=== PATIENT | female | born 1970 | race Caucasian/White ===

== ENCOUNTER 2016-11-11 17:57 | Emergency (ER) | payer BC ==
[~2016-11-11] VITALS: Ht 162.6 cm; Wt 49.9 kg
[~2016-11-11 17:57] MED LIST: FLV1 PO; LBR25 PO; LISI-461 PO; LORA-741 PO; NAPR1TAB9 PO; SERT50TA PO; THM100 PO
[2016-11-11 18:14] VITALS: Ht 162.6 cm; Wt 49.9 kg
[2016-11-11] MEDS ORDERED: CEPHALEXIN 500MG HOME PACK 1 EA BTL PO ONE (18:45)
[2016-11-11] MEDS ORDERED: RTL10 PO (19:00)
[2016-11-11] MEDS ORDERED: TRAZ50TA35 PO (19:00)
[2016-11-11] MEDS ORDERED: ATV1 PO (19:00)
[2016-11-11 19:04] LABS: BASO % 0.3 %; BASO ABS # 0.03 K/uL (0-0.2); COMPLETE YES; EOS % 0.7 %; HEMATOCRIT 35.4 % (37-47); IG% 0.3 %; LYMPH % 22.6 %; LYMPH ABS # 2.01 K/uL (1.2-3.4); MEAN CELL VOLUME 93.9 fL (80-100); MEAN CORPUSCULAR HEMOGLOBIN 32.6 pg (25-34); MEAN CORPUSCULAR HGB CONC 34.7 g/dl (32-36); MEAN PLATELET VOLUME 9.2 fL (7.4-10.4); MONO % 4.7 %; NEUT % 71.4 %; PLATELET COUNT 347 K/uL (130-400); RED BLOOD COUNT 3.77 M/uL (4.2-5.4)
[2016-11-11 19:17] LABS: BUN/CREATININE RATIO 12.2 (10-20); CALCIUM 8.8 mg/dl (8.5-10.1); CREATININE 0.78 mg/dl (0.60-1.20); POTASSIUM 3.7 mmol/L (3.5-5.1)
--- NOTE | 2016-11-11 19:42 | DIAGNOSTIC IMAGING REPORT ---
ULTRASOUND BILATERAL LOWER EXTREMITY VENOUS CLINICAL HISTORY: Toe discoloration. COMPARISON STUDY: No priors. TECHNIQUE: Real-time, grayscale, and color Doppler sonography of the deep veins of the right and left lower extremity was performed from the inguinal crease to the calf. Compression and augmentation were utilized. FINDINGS: There is no sonographic evidence of deep venous thrombosis identified in the right or left lower extremity. The common femoral, superficial femoral, and popliteal veins are patent and normally compressible bilaterally. The greater saphenous vein and the profunda femoris vein at the junction with the common femoral vein are clear in both legs. The visualized calf veins are patent bilaterally. IMPRESSION: There is no sonographic evidence of deep venous thrombosis identified in the right or left lower extremity. Electronically signed by: Amilcar Ash M.D. 11/11/2016 7:40 PM Dictated Date/Time: 11/11/2016 7:40 PM
[2016-11-11] MEDS ORDERED: CEPH500C PO (19:52)
[2016-11-11 20:03] VITALS: BP 141/78; PULSE 104; TEMP 37; O2SAT 98
[2016-11-11 20:10] LABS: INR 0.9 (0.9-1.1); PARTIAL THROMBOPLASTIN RATIO 0.9
[2016-11-11] MEDS ORDERED: BCPILLS PO (20:44)
--- NOTE | 2016-11-11 22:07 | EMERGENCY ROOM VISIT NOTE ---
History Report prepared by Abdirashid: Mia Magdaleno Under the Supervision of: Dr. Brain Lau M.D. First contact with patient: 18:21 Chief Complaint: OTHER COMPLAINT Stated Complaint: PURPLE TOES/BLOOD CLOTS, REFERRED FROM [facility] History of Present Illness The patient is a 46 year old female who presents to the Emergency Room with complaints of intermittent discoloration of her bilateral toes that started two weeks ago. She states that her bilateral toes get blueish-purple intermittently. She has not noticed any correlation between the discoloration and the cold, stress, or other things. The patient was seen at [facility] and told to come into the ED for further evaluation. She does not notice any pain in her feet with walking. The patient states that she picked open a spot that was on her left big toe today. She adds that she had a pedicure done two days ago, which revealed a blister with fluid under it so she felt that she needed to pick it to get the fluid out. The patient denies fevers, chest pain, shortness of breath, vomiting, abdominal pain, leg pain, and lower extremity edema. She states that her extremities are often cold and her hands occasionally get blueish-purple also. The patient is a former smoker. She stopped smoking 14 years ago and she was a heavy smoker for two years prior to quitting. The patient is on control pills and states that she has been laying in bed a lot secondary to being depressed. She admits that she has not been taking good care of herself and that she has not been eating well or exercising. Source of History: patient Onset: two weeks ago Position: toe(s) (bilateral) Quality: other (discoloration) Timing: intermittent Associated Symptoms: No SOB, No abdominal pain, No chest pain, No fevers, No vomiting Note: left big toe is intermittently painful, blister on left big toe, no leg pain, no lower extremity edema Review of Systems See HPI for pertinent positives & negatives. A total of 10 systems reviewed and were otherwise negative. Past Medical & Surgical Medical Problems: (1) Bipolar disorder (2) Hypertension Family History Patient reports no known family medical history. Social History Smoking Status: Former Smoker Alcohol Use: occasionally Marital Status: single Housing Status: unknown Occupation Status: employed Current/Historical Medications Scheduled Control Pills ( Control Pills), 1 TAB PO DAILY Cephalexin Monohydrate (Keflex), 500 MG PO QID Lisinopril (Lisinopril), 10 MG PO BID Lorazepam (Lorazepam), 0.5-1 MG PO TID Scheduled PRN Methylphenidate HCl (Methylphenidate HCl), 10 MG PO TID PRN for Focus Trazodone Hcl (Trazodone), 50 MG PO HS PRN for Sleep Allergies Coded Allergies: No Known Allergies (Unverified , 06/20/15) Physical Exam Vital Signs Date Time Temp Pulse Resp B/P Pulse Ox O2 Delivery O2 Flow Rate FiO2 11/11/16 20:03 37.0 104 18 141/78 98 11/11/16 19:40 37.0 104 18 141/78 98 Room Air 11/11/16 18:14 37.0 104 18 145/87 98 Room Air Physical Exam Constitutional: Vital signs reviewed. Eyes: Pupils are equal round reactive to light. Conjunctiva are noninjected. ENT: Pharynx is clear without erythema or exudate. Mucous membranes are moist. Neck supple without meningeal signs. Respiratory: Clear to auscultation bilaterally. Breath sounds are equal bilaterally. Cardiovascular: Regular rate and rhythm. No rubs or gallops. GI: Soft, nondistended and nontender. Bowel sounds are present. Musculoskeletal: No peripheral edema. No lower extremity tenderness. Slightly cool feet with minimal purplish discoloration scattered to the toes. Capillary refill about 2 seconds. Dorsalis pedis, and posterior tibialis pulses 2+ bilaterally. There is an evulsion of skin under the toenail of the left great toe without bleeding or discharge. No felon or paronychia. Integumentary: As above. Neurological: The patient is awake and alert. No focal deficits. Psychiatric: Anxious appearing. Medical Decision & Procedures ER Provider Diagnostic Interpretation: Radiology results as stated below per my review and the radiologist's interpretation: ULTRASOUND BILATERAL LOWER EXTREMITY VENOUS IMPRESSION: There is no sonographic evidence of deep venous thrombosis identified in the right or left lower extremity. Electronically signed by: Amilcar Ash M.D. 11/11/2016 7:40 PM Dictated Date/Time: 11/11/2016 7:40 PM Laboratory Results 11/11/16 18:50 Red Blood Count 3.77, Mean Corpuscular Volume 93.9, Mean Corpuscular Hemoglobin 32.6, Mean Corpuscular Hemoglobin Concent 34.7, Mean Platelet Volume 9.2, Neutrophils (%) (Auto) 71.4, Lymphocytes (%) (Auto) 22.6, Monocytes (%) (Auto) 4.7, Eosinophils (%) (Auto) 0.7, Basophils (%) (Auto) 0.3, Neutrophils # (Auto) 6.35, Lymphocytes # (Auto) 2.01, Monocytes # (Auto) 0.42, Eosinophils # (Auto) 0.06, Basophils # (Auto) 0.03 11/11/16 18:50 Test 11/11/16 18:50 11/11/16 19:46 White Blood Count 8.90 K/uL (4.8-10.8) Red Blood Count 3.77 M/uL (4.2-5.4) Hemoglobin 12.3 g/dL (12.0-16.0) Hematocrit 35.4 % (37-47) Mean Corpuscular Volume 93.9 fL (80-100) Mean Corpuscular Hemoglobin 32.6 pg (25-34) Mean Corpuscular Hemoglobin Concent 34.7 g/dl (32-36) Platelet Count 347 K/uL (130-400) Mean Platelet Volume 9.2 fL (7.4-10.4) Neutrophils (%) (Auto) 71.4 % Lymphocytes (%) (Auto) 22.6 % Monocytes (%) (Auto) 4.7 % Eosinophils (%) (Auto) 0.7 % Basophils (%) (Auto) 0.3 % Neutrophils # (Auto) 6.35 K/uL (1.4-6.5) Lymphocytes # (Auto) 2.01 K/uL (1.2-3.4) Monocytes # (Auto) 0.42 K/uL (0.11-0.59) Eosinophils # (Auto) 0.06 K/uL (0-0.5) Basophils # (Auto) 0.03 K/uL (0-0.2) RDW Standard Deviation 45.0 fL (36.4-46.3) RDW Coefficient of Variation 13.1 % (11.5-14.5) Immature Granulocyte % (Auto) 0.3 % Immature Granulocyte # (Auto) 0.03 K/uL (0.00-0.02) Anion Gap 11.0 mmol/L (3-11) Est Creatinine Clear Calc Drug Dose 71.7 ml/min Estimated GFR () 106.4 Estimated GFR (Non- 91.8 BUN/Creatinine Ratio 12.2 (10-20) Calcium Level 8.8 mg/dl (8.5-10.1) Prothrombin Time 10.0 SECONDS (9.0-12.0) Prothromb Time International Ratio 0.9 (0.9-1.1) Activated Partial Thromboplast Time 24.1 SECONDS (21.0-31.0) Partial Thromboplastin Ratio 0.9 Laboratory results as reviewed by me. Medications Administered Medications (Trade) Dose Ordered Sig/Franklyn Route Start Time Stop Time Status Last Admin Dose Admin Cephalexin Monohydrate (Keflex 500MG Home Pack) 1 homepack NOW ONCE PO 11/11/16 18:45 11/11/16 18:46 DC 11/11/16 19:37 1 HOMEPACK ED Course 1821: The patient was evaluated in room B2. A complete history and physical exam was performed. 1844: Ordered Cephalexin Monohydrate 1 homepack PO 1905: I reassessed the patient. She is going to ultrasound. 1947: Upon reevaluation, the patient appeared to have improvement of her symptoms. I discussed andria's findings with the patient and her father. They verbalized agreement of the treatment plan. The patient was discharged home. Medical Decision This is a 46-year-old female presents with discoloration to her fingers and toes. Differential diagnosis includes vasculitis, claudication, Raynaud's phenomenon, arterial insufficiency, venous insufficiency, DVT. I did perform a limited focused review of portions of the patient's old chart on the electronic medical record. The patient has had no recent pertinent visits to this hospital. I did evaluate the patient as noted above. The patient as intermittent discoloration of her fingers and toes for the past 2 weeks. She denies any swelling or pain to her legs other than where she was picking on her big toe today. She denies any chest discomfort or shortness of breath. She has no signs of arterial occlusion and has very strong distal pulses in the feet. She does have some risk factors for DVT including hormonal control use and she states that she has been working in bed frequently. I did order and review the patient's blood work as noted in the electronic medical record. I did order bilateral Doppler ultrasounds of lower extremities. I did review the images myself as well as the radiology report as described above. There is no evidence of DVT. I did discuss the test results with the patient. I did recommend close follow up with her regular physician for further workup of possible vasculopathy. She was discharged with a prescription for Keflex for her toe. Impression Primary Impression: Toe cyanosis Additional Impression: Avulsion of skin of foot Scribe Attestation The scribe's documentation has been prepared under my direct and personally reviewed by me in its entirety. I confirm that the note above accurately reflects all work, treatment, procedures, and medical decision making performed by me. Departure Information Dispostion Home / Self-Care Prescriptions Cephalexin Monohydrate (Keflex) 500 Mg Cap 500 MG PO QID for 5 Days, #20 CAP Prov: Brain Lau M.D. 11/11/16 Referrals Thelma Jacinto (PCP) Forms HOME CARE DOCUMENTATION FORM, IMPORTANT VISIT INFORMATION, WORK / SCHOOL INSTRUCTIONS Patient Instructions My [facility] Additional Instructions You have been examined and treated today on an emergency basis only. This is not a substitute for, or an effort to provide, complete comprehensive medical care. It is impossible to recognize and treat all injuries or illnesses in a single emergency department visit. It is therefore important that you follow up closely with your physician. Call as soon as possible for an appointment. Return for worsening symptoms or if you develop fever, vomiting, chest pain, shortness of breath, numbness or weakness in your feet or any other concerning symptoms. Problem Qualifiers Additional Impression: Avulsion of skin of foot Encounter type: initial encounter Laterality: left Qualified Codes: S91.302A - Unspecified open wound, left foot, initial encounter
[2016-12-28] MEDS ORDERED: MULT-589 PO (13:31)
[2016-12-28] MEDS ORDERED: LBR10 PO (13:31)
[2016-12-28] MEDS ORDERED: THM100 PO (13:31)
[2016-12-28] MEDS ORDERED: ATV1 PO (13:31)
[2016-12-28] MEDS ORDERED: FLV1 PO (13:31)
[2016-12-28] MEDS ORDERED: LSN25 PO (13:31)
== END 2016-11-11 20:04 | disposition home or self-care (01) ==
LOC: EDBD → C.EDB 17:59
DX: R23.0 Cyanosis (principal); S91.302A Unspecified open wound, left foot, initial encounter; X58.XXXA Exposure to other specified factors, initial encounter; I10 Essential (primary) hypertension; F31.9 Bipolar disorder, unspecified; Z79.899 Other long term (current) drug therapy; Z87.891 Personal history of nicotine dependence

== ENCOUNTER 2016-12-23 21:08 | Inpatient (IN) | payer BC ==
[~2016-12-23] VITALS: Ht 162.6 cm; Wt 52.5 kg
[~2016-12-23 21:08] MED LIST changes: +ATV1 PO; +BCPILLS PO; -FLV1 PO; -LBR25 PO; -LORA-741 PO; -NAPR1TAB9 PO; +RTL10 PO; -SERT50TA PO; -THM100 PO; +TRAZ50TA35 PO
[2016-12-23] MEDS ORDERED: SODIUM CHLORIDE 0.9% 1000ML 1,000 ML IV STA (21:32)
[2016-12-23] MEDS ORDERED: EFF/375 PO (21:56)
[2016-12-23] MEDS ORDERED: SERT-234 PO (21:56)
[2016-12-23] MEDS ORDERED: CEPH500C2 PO (21:56)
[2016-12-23] MEDS ORDERED: METH20TA66 PO (21:56)
[2016-12-23] MEDS ORDERED: CARB0.5D28 OP (21:56)
[2016-12-23 22:07] LABS: URINE APPEARANCE CLEAR (CLEAR); URINE BILIRUBIN NEG (NEG); URINE COLOR YELLOW; URINE NITRITE NEG (NEG); URINE PH 5.5 (4.5-7.5); URINE SPECIFIC GRAVITY 1.006 (1.000-1.030); UROBILINOGEN NEG (NEG)
[2016-12-23 22:08] LABS: MANUAL MICROSCOPIC REQUIRED? NO; REVIEW REQ? NO
[2016-12-23 22:25] LABS: BENZODIAZEPINE, URINE NEG (NEG); COCAINE,URINE NEG (NEG); PHENCYCLIDINE, URINE NEG (NEG)
[2016-12-23 22:46] LABS: BASO % 0.5 %; BASO ABS # 0.05 K/uL (0-0.2); COMPLETE YES; EOS % 0.4 %; HEMATOCRIT 36.9 % (37-47); IG% 0.2 %; LYMPH % 12.7 %; LYMPH ABS # 1.23 K/uL (1.2-3.4); MEAN CELL VOLUME 98.9 fL (80-100); MEAN CORPUSCULAR HGB CONC 33.3 g/dl (32-36); MEAN PLATELET VOLUME 9.1 fL (7.4-10.4); MONO % 3.5 %; NEUT % 82.7 %; PLATELET COUNT 305 K/uL (130-400); RED BLOOD COUNT 3.73 M/uL (4.2-5.4); WHITE BLOOD COUNT 9.71 K/uL (4.8-10.8)
[2016-12-23 22:55] LABS: PARTIAL THROMBOPLASTIN RATIO 0.9; PROTHROMBIN TIME (PATIENT) 10.2 SECONDS (9.0-12.0)
--- NOTE | 2016-12-23 22:59 | DIAGNOSTIC IMAGING REPORT ---
CHEST ONE VIEW PORTABLE HISTORY: Altered mental status. COMPARISON: Chest 06/20/2015. FINDINGS: Right lower lobe nodular density likely represents a nipple shadow. Rotated study. The lungs appear clear. No pleural effusions. No pneumothorax. The heart is normal in size. IMPRESSION: No acute process. Electronically signed by: Дмитрий Scherer M.D. 12/23/2016 10:57 PM Dictated Date/Time: 12/23/2016 10:56 PM
[2016-12-23 23:09] LABS: ALT/SGPT 17 U/L (12-78); AST/SGOT 17 U/L (15-37); BLOOD UREA NITROGEN 8 mg/dl (7-18); BUN/CREATININE RATIO 9.8 (10-20); CALCIUM 7.3 mg/dl (8.5-10.1); CARBON DIOXIDE 23 mmol/L (21-32); CHLORIDE 108 mmol/L (98-107); CREATININE 0.78 mg/dl (0.60-1.20); GLUCOSE 85 mg/dl (70-99); POTASSIUM 3.4 mmol/L (3.5-5.1); SODIUM 143 mmol/L (136-145)
[2016-12-23 23:12] LABS: ALKALINE PHOSPHATASE 52 U/L (45-117)
[2016-12-23 23:18] LABS: ACETAMINOPHEN 3 ug/ml (10-30)
[2016-12-24] MEDS ORDERED: THIAMINE HCL 100 MG/ML 2 ML VIAL IV STA (00:18)
[2016-12-24] MEDS ORDERED: THIAMINE HCL INJ 100 MG in SYRINGE 9 ML IV STA (00:26)
[2016-12-24] MEDS ORDERED: POTASSIUM CHLORIDE 10 MEQ TABCR PO STA (00:56)
[2016-12-24] MEDS ORDERED: HALOPERIDOL LACTATE 5 MG/ML 1 ML VIAL IM PRN (01:00)
[2016-12-24 01:14] LABS: PREG INTERNAL NEGATIVE QC NEG CLEAR BACKGROUND; PREG INTERNAL POSITIVE QC POS CONTROL LINE
[2016-12-24] MEDS ORDERED: IV FLUIDS COMPLETED PRN (01:30)
[2016-12-24] MEDS ORDERED: GABAPENTIN 600 MG TAB PO SCH (02:00)
[2016-12-24] MEDS: LACTATED RINGER'S 1000ML 1,000 ML IV SCH ×2 (02:03→13:30)
--- NOTE | 2016-12-24 02:05 | EMERGENCY ROOM VISIT NOTE ---
History Report prepared by Abdirashid: Timothy Davis Under the Supervision of: Dr. Jeff Pruett D.O. First contact with patient: 21:24 Chief Complaint: OVERDOSE (INTENTIONAL) Stated Complaint: OVERDOSE History of Present Illness This HPI is limited due to the intoxication of the patient. The patient is a 46 year old female who presents to the Emergency Room following an intentional overdose. Per the emergency medical personnel the patient was found in her basement laying on the floor with a bottle of alcohol and multiple bottles of medication including Ativan and Benadryl. The patient admits to taking Ativan. She was last seen behaving normally at 1200 by her family. History limited to intoxication. Source of History: EMS Onset: Uknown Position: other (Ingestion) Quality: other (Intentional overdose ) Review of Systems See HPI for pertinent positives & negatives. A total of 10 systems reviewed and were otherwise negative. Past Medical & Surgical Medical Problems: (1) Bipolar disorder (2) Drug overdose, intentional (3) Hypertension Family History Patient reports no known family medical history. Social History Smoking Status: Unknown if Ever Smoked Alcohol Use: occasionally Marital Status: single Housing Status: unknown Occupation Status: employed Current/Historical Medications Scheduled Carboxymethylcellulose Sodium (Refresh Tears), Unknown Dose OP DIRECTED Cephalexin Monohydrate (Keflex), 500 MG PO QID Lisinopril (Lisinopril), 10 MG PO BID Lorazepam (Lorazepam), 0.5-1 MG PO TID Methylphenidate HCl (Methylphenidate HCl), 20 MG PO BID Sertraline (Zoloft), 200 MG PO HS Venlafaxine Hcl (Effexor), 75 MG PO QDB Scheduled PRN Trazodone Hcl (Trazodone), 50 MG PO HS PRN for Sleep Allergies Coded Allergies: No Known Allergies (Unverified , 12/23/16) Physical Exam Vital Signs Date Time Temp Pulse Resp B/P Pulse Ox O2 Delivery O2 Flow Rate FiO2 12/24/16 00:41 101 16 98 12/24/16 00:36 96 16 99 12/24/16 00:30 117/72 12/24/16 00:06 92 14 100 12/24/16 00:01 129/100 12/23/16 23:43 98 15 100 12/23/16 23:30 107/68 4/23/17 23:13 90 16 100 12/23/16 23:00 127/82 12/23/16 22:44 111/73 12/23/16 22:43 86 15 97 12/23/16 22:38 88 16 111/73 99 12/23/16 22:08 86 17 100 12/23/16 21:38 85 17 100 12/23/16 21:36 Room Air 12/23/16 21:28 88 12/23/16 21:20 133/85 12/23/16 21:12 36.4 90 16 133/85 100 Room Air Physical Exam GENERAL: Laying on right side, disheveled, responding to voice. EYE EXAM: normal conjunctiva, PERRL and EOM's grossly intact. Pupils are 5 mm and reactive to light. OROPHARYNX: no exudate, no erythema, lips, buccal mucosa, and tongue normal and mucous membranes are moist NECK: There are scratch soliz along the left side of the neck. Supple, no nuchal rigidity, no adenopathy, non-tender LUNGS: Clear to auscultation. Normal chest wall mechanics HEART: no murmurs, S1 normal and S2 normal ABDOMEN: abdomen soft, non-tender, normo-active bowel sounds, no masses, no rebound or guarding. BACK: Back is symmetrical on inspection and there is no deformity, no midline tenderness, no CVA tenderness. SKIN: no rashes and no bruising UPPER EXTREMITIES: upper extremities are grossly normal. LOWER EXTREMITIES: No pitting edema. NEURO EXAM: Not following commands. Able to intermittently answer questions in single word. Medical Decision & Procedures ER Provider Diagnostic Interpretation: Radiology results as stated below per my review and the radiologist's interpretation: CHEST ONE VIEW PORTABLE HISTORY: Altered mental status. COMPARISON: Chest 06/20/2015. FINDINGS: Right lower lobe nodular density likely represents a nipple shadow. Rotated study. The lungs appear clear. No pleural effusions. No pneumothorax. The heart is normal in size. IMPRESSION: No acute process. Electronically signed by: Дмитрий Scherer M.D. 12/23/2016 10:57 PM Dictated Date/Time: 12/23/2016 10:56 PM Laboratory Results 12/23/16 22:28 Red Blood Count 3.73, Mean Corpuscular Volume 98.9, Mean Corpuscular Hemoglobin 33.0, Mean Corpuscular Hemoglobin Concent 33.3, Mean Platelet Volume 9.1, Neutrophils (%) (Auto) 82.7, Lymphocytes (%) (Auto) 12.7, Monocytes (%) (Auto) 3.5, Eosinophils (%) (Auto) 0.4, Basophils (%) (Auto) 0.5, Neutrophils # (Auto) 8.03, Lymphocytes # (Auto) 1.23, Monocytes # (Auto) 0.34, Eosinophils # (Auto) 0.04, Basophils # (Auto) 0.05 12/23/16 22:28 Test 12/23/16 21:10 12/23/16 21:58 12/23/16 22:28 Urine Color YELLOW Urine Appearance CLEAR (CLEAR) Urine pH 5.5 (4.5-7.5) Urine Specific [place] 1.006 (1.000-1.030) Urine Protein NEG (NEG) Urine Glucose (UA) NEG (NEG) Urine Ketones NEG (NEG) Urine Occult Blood NEG (NEG) Urine Nitrite NEG (NEG) Urine Bilirubin NEG (NEG) Urine Urobilinogen NEG (NEG) Urine Leukocyte Esterase NEG (NEG) Urine Osmolality 221 mOms/kg (500-800) Urine Opiates Screen NEG (NEG) Urine Methadone, Qualitative NEG (NEG) Urine Barbiturates NEG (NEG) Urine Phencyclidine (PCP) Level NEG (NEG) Ur Amphetamine/Methamphetamine NEG (NEG) MDMA (Ecstasy) Screen NEG (NEG) Urine Benzodiazepines Screen NEG (NEG) Urine Cocaine Metabolite NEG (NEG) Urine Marijuana (THC) NEG (NEG) Urine Test NEG (NEG) White Blood Count 9.71 K/uL (4.8-10.8) Red Blood Count 3.73 M/uL (4.2-5.4) Hemoglobin 12.3 g/dL (12.0-16.0) Hematocrit 36.9 % (37-47) Mean Corpuscular Volume 98.9 fL (80-100) Mean Corpuscular Hemoglobin 33.0 pg (25-34) Mean Corpuscular Hemoglobin Concent 33.3 g/dl (32-36) Platelet Count 305 K/uL (130-400) Mean Platelet Volume 9.1 fL (7.4-10.4) Neutrophils (%) (Auto) 82.7 % Lymphocytes (%) (Auto) 12.7 % Monocytes (%) (Auto) 3.5 % Eosinophils (%) (Auto) 0.4 % Basophils (%) (Auto) 0.5 % Neutrophils # (Auto) 8.03 K/uL (1.4-6.5) Lymphocytes # (Auto) 1.23 K/uL (1.2-3.4) Monocytes # (Auto) 0.34 K/uL (0.11-0.59) Eosinophils # (Auto) 0.04 K/uL (0-0.5) Basophils # (Auto) 0.05 K/uL (0-0.2) RDW Standard Deviation 47.3 fL (36.4-46.3) RDW Coefficient of Variation 13.1 % (11.5-14.5) Immature Granulocyte % (Auto) 0.2 % Immature Granulocyte # (Auto) 0.02 K/uL (0.00-0.02) Prothrombin Time 10.2 SECONDS (9.0-12.0) Prothromb Time International Ratio 1.0 (0.9-1.1) Activated Partial Thromboplast Time 23.6 SECONDS (21.0-31.0) Partial Thromboplastin Ratio 0.9 Anion Gap 12.0 mmol/L (3-11) Estimated GFR () 106.4 Estimated GFR (Non- 91.8 BUN/Creatinine Ratio 9.8 (10-20) Osmolality 360 mOsm/kg (280-300) Calcium Level 7.3 mg/dl (8.5-10.1) Magnesium Level 2.0 mg/dl (1.8-2.4) Total Bilirubin < 0.1 mg/dl (0.2-1) Direct Bilirubin < 0.1 mg/dl (0-0.2) Aspartate Amino Transf (AST/SGOT) 17 U/L (15-37) Alanine Aminotransferase (ALT/SGPT) 17 U/L (12-78) Alkaline Phosphatase 52 U/L (45-117) Total Creatine Kinase 69 U/L (26-192) Total Protein 6.3 gm/dl (6.4-8.2) Albumin 3.2 gm/dl (3.4-5.0) Lipase 164 U/L (73-393) Salicylates Level < 1.7 mg/dl (2.8-20) Acetaminophen Level 3 ug/ml (10-30) Ethyl Alcohol mg/dL 319.0 mg/dl (0-3) Laboratory results per my review. Medications Administered Medications (Trade) Dose Ordered Sig/Franklyn Route Start Time Stop Time Status Last Admin Dose Admin Sodium Chloride 1,000 ml @ 999 mls/hr Q1H1M STAT IV 12/23/16 21:32 12/23/16 22:32 DC 12/23/16 21:32 999 MLS/HR Thiamine HCl/ Syringe (Vitamin B-1 Inj/ Syringe) 10 ml @ 2 mls/min NOW STAT IV 12/24/16 00:26 12/24/16 00:30 DC 12/24/16 00:38 2 MLS/MIN ECG Indication: toxicologic Rate (beats per minute): 95 Rhythm: sinus tachycardia Findings: no ectopy, other (Normal [place], Normal intervals) ED Course ED COURSE: Vital signs were reviewed and showed tachycardiac vitals The patients medical record was reviewed The above diagnostic studies were performed and reviewed. ED treatments and interventions as stated above. 6: The patient was evaluated in room A3. A complete history and physical examination was performed. 2132: Ordered Sodium Chloride 1000 mL @ 999 mL/hr IV. 2242: I discussed the case with the patient's mother at this time. 2357: I discussed the case with Dr. Gavino Holt [facility] Hospitalist at this time , He will evaluate the patient for further treatment. 0000: Ordered Lactated Ringer's 1000 mL @ 75 mL/hr IV. 0026: Ordered Thiamine HCl 100 mg 10 mL @ 2mL/min IV. 0030: Upon reevaluation, the patient is resting in bed.I discussed my findings with the patient and she understands and agrees with the treatment plan. Based on the patients age, coexisting illnesses, exam and lab findings the decision to treat as an inpatient was made. The patient remained stable while under my care. The patient will be evaluated for further management. Medical Decision Differential diagnosis: Etiologies such as toxicologic, infection, hypoglycemia, electrolyte abnormalities, cardiac sources, intracerebral event, neurologic, as well as others were entertained. Patient is a 46-year-old female that presents the ER following writing a suicide note, taking large amounts of alcohol and possible multidrug overdose. On exam patient awakens to voice but mumbles and is unable to give a complete history. Parents are uncertain of what she took. Patient does smell of alcohol. CBC was unremarkable. BMP was unremarkable along with LFTs, bilirubin and lipase. No significant large anion gap. Serum osmolality was elevated with a elevated alcohol. This was negative. Salicylates and acetaminophen were negative. PT and INR were unremarkable. 302 was petitioned by family. Patient's family was updated. She was in its internal medicine for suicide attempt and multiple drug overdose. EKG was unremarkable with normal intervals. Chest x-ray was unremarkable as well. Consults Time Called: [phone] Consulting Physician: Dr. Gavino Agarwal Hospitalist Returned Call: [phone] I discussed the case with Dr. [facility]avino [facility] at this time, He will evaluate the patient for further treatment. Impression Primary Impression: Acute alcohol intoxication Additional Impressions: Drug overdose, intentional Suicide attempt Scribe Attestation The scribe's documentation has been prepared under my direction and personally reviewed by me in its entirety. I confirm that the note above accurately reflects all work, treatment, procedures, and medical decision making performed by me. Departure Information Dispostion Being Evaluated By Hospitalist Referrals No Doctor, Assigned (PCP) Patient Instructions My [facility] Problem Qualifiers Primary Impression: Acute alcohol intoxication Complication of substance-induced condition: with unspecified complication Qualified Codes: F10.129 - Alcohol abuse with intoxication, unspecified Additional Impressions: Drug overdose, intentional Encounter type: initial encounter Qualified Codes: T50.902A - Poisoning by unspecified drugs, medicaments and biological substances, intentional self-harm , initial encounter
[2016-12-24 02:09] VITALS: BP 141/92; PULSE 93; TEMP 36.8; O2SAT 97; Ht 162.6 cm; Wt 52.5 kg
--- NOTE | 2016-12-24 04:36 | HISTORY & PHYSICAL EXAMINATION ---
DATE OF ADMISSION: 12/24/2016 PRIMARY CARE DOCTOR: Dr. Lake. Patient however requesting that records of current hospital confinement not be forwarded to PCP for now. Hx obtained from px and records. CHIEF COMPLAINT: "I should be ." HISTORY OF PRESENT ILLNESS: Medical history significant for mood DSO, anxiety, past tobacco abuse, hypertension, attention deficit as per records. Recent confinement in June 2015 for alcohol intoxication and withdrawal. The last few days the patient undergoing a lot of stress. Last night the patient found unresponsive with a suicide note at home. Patient noted to be lethargic. Patient found with empty pill bottles around her, lisinopril, Ativan and diphenhydramine. As per the patient's parents, patient buys medications from the streets; frequently talks about suicide. MEDICAL HISTORY: As above. SURGERIES: None. HOME MEDICATIONS: Include Refresh, Keflex, lisinopril, lorazepam, methylphenidate, Zoloft, trazodone, Effexor. ALLERGIES: No known drug allergies. FAMILY HISTORY: Hypertension. PERSONAL AND SOCIAL HISTORY: Past tobacco abuse, alcohol abuse as per records although patient denies this. 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 REVIEW OF SYSTEMS: As per HPI, all other ROS negative. PHYSICAL EXAMINATION: VITAL SIGNS: Blood pressure was noted to be 120/80, pulse rate 91, RR 16, temperature 36.4, sats 100 on room air. GENERAL: Noted to be crying, anxious, no respiratory distress. SKIN: Normal color. HEENT: [place] palpebral conjunctivae. Dry mucosa. NECK: No JVD. supple, abrasion on the left neck. CHEST: Clear to auscultation. HEART: Regular rate and rhythm. ABDOMEN: Soft. EXTREMITIES: No edema, no tenderness. NEUROLOGIC: No gross focality except for dilated pupils LABS: Hemoglobin 12.3, platelets 205. Sodium 142 K 3.3 CO2 20, BUN 18.7, glucose was noted to be 80. serum osmolarity 360 Alcohol level was 319. Urine tox was negative. ASSESSMENT: 1. Polysubstance overdose secondary to suicidality (benzo, alcohol, JOSE inhibitor, and antihistamine rx) Patient currently more awake. 2. Mood disorder, suboptimal. 3. Hypertension. BP stable. 4. alcohol abuse 5. past tobacco abuse. 6. hypokalemia PLAN: Observation [facility] Suicide precautions Psych consult RE suicidality Hold home neuro-psychotropics for now until patient seen by Psych replace potassium. DT precautions ancillary services manager RE discharge planning. DVT prophylaxis, SCDs. Full code MTDD
[2016-12-24] MEDS: GABAPENTIN 600 MG TAB PO SCH ×3 (06:29→19:47)
[2016-12-24 06:47] LABS: BUN/CREATININE RATIO 6.4 (10-20); CALCIUM 7.8 mg/dl (8.5-10.1); CREATININE 0.75 mg/dl (0.60-1.20); POTASSIUM 3.8 mmol/L (3.5-5.1)
[2016-12-24 07:15] VITALS: BP 107/69; PULSE 95; TEMP 36.9; O2SAT 98
[2016-12-24] MEDS: LISINOPRIL 2.5 MG TAB PO SCH (08:00)
[2016-12-24] MEDS: MULTIVITAMIN TAB PO SCH (08:00)
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
[2016-12-24] MEDS: HALOPERIDOL 1 MG TAB PO PRN ×2 (11:14→16:27)
--- NOTE | 2016-12-24 12:16 | Progress Note ---
Internal Med Progress Note Date of Service: Dec 24, 2016. Provider Documentation: SUBJECTIVE: Patient is crying that she doesnt want to stay here or go to psych facility. Mother by bedside, Sitter by bedside. Suicidal ideations + OBJECTIVE: Vital Signs-as noted below Exam: Not cooperative General-AAOX3, crying Lungs-AEBE, no wheezing Heart-S1, S2 normal, no murmurs Extremities-No edema Lab data as noted below. ASSESSMENT & PLAN: ASSESSMENT AND PLAN : POLYSUBSTANCE OVERDOSE-SUICIDE ATTEMPT : (Benzo/alcohol/ACEI/ANTIHISTAMINE RX) -Vital stable. Continues to cry/depressed -Continue with 1:1 observation -Psych on board- Needs inpatient psych rx once medically cleared. To restart medications per psych once transferred to facility. Appreciate inputs ALCOHOL ABUSE -Last drink yesterday. -W/F Withdrawal over next 48 hours as levels > 300 on presentation -Gabapentin alcohol withdrawal protocol. Will try to avoid BZDs as much as possible -Per psych, to avoid Benzodiazepines unless needed for withdrawal. Patient has been known to abuse medications per mom. Refused to sign medical release for her outpatient providers because of the fear that they will take away her medications from her. HYPOKALEMIA -Resolved HTN Stable DVT PROPHYLAXIS SCDs; low risk DISPOSITION Observation . Needs to be transferred to inpatient psych unit , [facility] once medically cleared Mom by bedside Vital Signs: Date Time Temp Pulse Resp B/P Pulse Ox O2 Delivery O2 Flow Rate FiO2 12/24/16 08:00 Room Air 12/24/16 07:15 36.9 95 20 107/69 98 Room Air 12/24/16 02:09 36.8 93 22 141/92 97 Room Air 12/24/16 01:11 88 15 100 12/24/16 01:04 91 12/24/16 01:00 121/83 12/24/16 00:41 101 16 98 12/24/16 00:36 96 16 99 12/24/16 00:30 117/72 12/24/16 00:06 92 14 100 12/24/16 00:01 129/100 12/23/16 23:43 98 15 100 12/23/16 23:30 107/68 12/23/16 23:13 90 16 100 12/23/16 23:00 127/82 12/23/16 22:44 111/73 12/23/16 22:43 86 15 97 12/23/16 22:38 88 16 111/73 99 12/23/16 22:08 86 17 100 12/23/16 21:38 85 17 100 12/23/16 21:36 Room Air 12/23/16 21:28 88 12/23/16 21:20 133/85 12/23/16 21:12 36.4 90 16 133/85 100 Room Air Lab Results: Results Past 24 Hours Test 12/23/16 21:10 12/23/16 21:58 12/23/16 22:28 12/24/16 05:14 Range/Units Urine Color YELLOW Urine Appearance CLEAR CLEAR Urine pH 5.5 4.5-7.5 Urine Specific [place] 1.006 1.000-1.030 Urine Protein NEG NEG Urine Glucose (UA) NEG NEG Urine Ketones NEG NEG Urine Occult Blood NEG NEG Urine Nitrite NEG NEG Urine Bilirubin NEG NEG Urine Urobilinogen NEG NEG Urine Leukocyte Esterase NEG NEG Urine Osmolality 221 500-800 mOms/kg Urine Opiates Screen NEG NEG Urine Methadone, Qualitative NEG NEG Urine Barbiturates NEG NEG Urine Phencyclidine (PCP) Level NEG NEG Ur Amphetamine/Methamphetamine NEG NEG MDMA (Ecstasy) Screen NEG NEG Urine Benzodiazepines Screen NEG NEG Urine Cocaine Metabolite NEG NEG Urine Marijuana (THC) NEG NEG Urine Test NEG NEG White Blood Count 9.71 4.8-10.8 K/uL Red Blood Count 3.73 4.2-5.4 M/uL Hemoglobin 12.3 12.0-16.0 g/dL Hematocrit 36.9 37-47 % Mean Corpuscular Volume 98.9 80-100 fL Mean Corpuscular Hemoglobin 33.0 25-34 pg Mean Corpuscular Hemoglobin Concent 33.3 32-36 g/dl Platelet Count 305 130-400 K/uL Mean Platelet Volume 9.1 7.4-10.4 fL Neutrophils (%) (Auto) 82.7 % Lymphocytes (%) (Auto) 12.7 % Monocytes (%) (Auto) 3.5 % Eosinophils (%) (Auto) 0.4 % Basophils (%) (Auto) 0.5 % Neutrophils # (Auto) 8.03 1.4-6.5 K/uL Lymphocytes # (Auto) 1.23 1.2-3.4 K/uL Monocytes # (Auto) 0.34 0.11-0.59 K/uL Eosinophils # (Auto) 0.04 0-0.5 K/uL Basophils # (Auto) 0.05 0-0.2 K/uL RDW Standard Deviation 47.3 36.4-46.3 fL RDW Coefficient of Variation 13.1 11.5-14.5 % Immature Granulocyte % (Auto) 0.2 % Immature Granulocyte # (Auto) 0.02 0.00-0.02 K/uL Prothrombin Time 10.2 9.0-12.0 SECONDS Prothromb Time International Ratio 1.0 0.9-1.1 Activated Partial Thromboplast Time 23.6 21.0-31.0 SECONDS Partial Thromboplastin Ratio 0.9 Sodium Level 143 144 136-145 mmol/L Potassium Level 3.4 3.8 3.5-5.1 mmol/L Chloride Level 108 111 98-107 mmol/L Carbon Dioxide Level 23 22 21-32 mmol/L Anion Gap 12.0 11.0 3-11 mmol/L Blood Urea Nitrogen 8 5 7-18 mg/dl Creatinine 0.78 0.75 0.60-1.20 mg/dl Estimated GFR () 106.4 111.6 Estimated GFR (Non- 91.8 96.3 BUN/Creatinine Ratio 9.8 6.4 10-20 Random Glucose 85 74 70-99 mg/dl Osmolality 360 280-300 mOsm/kg Calcium Level 7.3 7.8 8.5-10.1 mg/dl Magnesium Level 2.0 1.8-2.4 mg/dl Total Bilirubin < 0.1 0.2-1 mg/dl Direct Bilirubin < 0.1 0-0.2 mg/dl Aspartate Amino Transf (AST/SGOT) 17 15-37 U/L Alanine Aminotransferase (ALT/SGPT) 17 12-78 U/L Alkaline Phosphatase 52 45-117 U/L Total Creatine Kinase 69 26-192 U/L Total Protein 6.3 6.4-8.2 gm/dl Albumin 3.2 3.4-5.0 gm/dl Lipase 164 73-393 U/L Salicylates Level < 1.7 2.8-20 mg/dl Acetaminophen Level 3 10-30 ug/ml Ethyl Alcohol mg/dL 319.0 0-3 mg/dl Est Creatinine Clear Calc Drug Dose 79.9 ml/min
[2016-12-24 14:33] VITALS: BP 147/91; PULSE 92; TEMP 36.9; O2SAT 99
[2016-12-24] MEDS: ACETAMINOPHEN 325 MG TAB PO PRN (19:46)
[2016-12-24 22:54] VITALS: BP 145/88; PULSE 88; TEMP 36.9; O2SAT 94
[2016-12-25] VITALS (9 sets, daily range): BP systolic 108–150; BP diastolic 67–90; PULSE 80–105; TEMP 36.7–36.9; O2SAT 97–99
[2016-12-25] MEDS: LACTATED RINGER'S 1000ML 1,000 ML IV SCH (02:27)
[2016-12-25] MEDS: HALOPERIDOL 1 MG TAB PO PRN ×2 (03:35→09:25)
[2016-12-25] MEDS: GABAPENTIN 600 MG TAB PO SCH ×2 (03:35→11:37)
[2016-12-25] MEDS: THIAMINE HCL 100 MG TAB PO SCH (09:25)
[2016-12-25] MEDS: MULTIVITAMIN TAB PO SCH (09:25)
[2016-12-25] MEDS: LISINOPRIL 2.5 MG TAB PO SCH (09:25)
[2016-12-25] MEDS: SODIUM CHLORIDE 0.9% 1000ML 1,000 ML IV SCH ×2 (11:38→19:57)
[2016-12-25 11:46] LABS: BUN/CREATININE RATIO 10.7 (10-20); CALCIUM 8.5 mg/dl (8.5-10.1); CREATININE 0.64 mg/dl (0.60-1.20); MAGNESIUM 2.3 mg/dl (1.8-2.4); POTASSIUM 4.1 mmol/L (3.5-5.1)
[2016-12-25] MEDS ORDERED: LORAZEPAM 2 MG/ML 1 ML VIAL IV STA (12:10)
[2016-12-25] MEDS ORDERED: CHLORDIAZEPOXIDE 25 MG CAP PO SCH (12:15)
[2016-12-25] MEDS: ONDANSETRON INJ 2 MG/ML 2 ML VIAL IV. PRN ×2 (12:20→12:36)
[2016-12-25] MEDS: PANTOprazole INJ 40 MG in SYRINGE 0 ML IV ONE ×2 (12:20→12:36)
[2016-12-25] MEDS ORDERED: LORAZEPAM 2 MG/ML 1 ML VIAL ONE (12:21)
[2016-12-25] MEDS ORDERED: NURSING VERBAL MED ORDER ONE (12:30)
--- NOTE | 2016-12-25 12:38 | Progress Note ---
Medicine Progress Note Date & Time of Visit: Dec 25, 2016 at 12:28. Subjective seen sitting up in bed, mostly looking up was having dry heaves this AM feels anxious, has some sweats on her face denies hallucinations oriented x 3 states tongue feels thick but no shortness of breath, pruritus denies chest pain, palpitations, dizziness, headache no abdominal pain, diarrhea no other symptoms Objective Last 8 Hrs Date Time Temp Pulse Resp B/P Pulse Ox O2 Delivery O2 Flow Rate FiO2 12/25/16 12:19 105 97 12/25/16 10:41 Room Air 12/25/16 07:13 36.7 80 20 150/90 98 Room Air Physical Exam: General- oriented x 3, not in distress, speaks in sentences with no effort Head- atraumatic Eyes-EOMI, anicteric ENT- (+) tardive dyskenia like movements? Neck- supple, no JVD, no adenopathy, no thyromegaly; no bruits appreciated Lungs- clear to auscultation b/l Heart- mild tachycardia, regular rhythm; no murmurs Abdomen- normal bowel sounds, soft, nontender Extremities- no pretibial edema, no calf tenderness; peripheral pulses intact Neuro- alert, oriented x 3;no gross focal deficits Skin- warm & dry Laboratory Results: Last 24 Hours Test 12/25/16 10:50 Sodium Level 138 mmol/L Potassium Level 4.1 mmol/L Chloride Level 103 mmol/L Carbon Dioxide Level 27 mmol/L Anion Gap 8.0 mmol/L Blood Urea Nitrogen 7 mg/dl Creatinine 0.64 mg/dl Est Creatinine Clear Calc Drug Dose 92.0 ml/min Estimated GFR () 124.9 Estimated GFR (Non- 107.8 BUN/Creatinine Ratio 10.7 Random Glucose 101 mg/dl Calcium Level 8.5 mg/dl Magnesium Level 2.3 mg/dl Assessment & Plan POSSIBLE ALCOHOL VS. BENZODIAZEPENE WITHDRAWAL - change Gabapentin to Librium PO, PRN Ativan based on Alc With Protocol IV fluids, folate, thiamine - discussed with Psych, they are agreeable with above - transfer to Tele POLYSUBSTANCE OVERDOSE-SUICIDE ATTEMPT (Benzo/alcohol/ACEI/ANTIHISTAMINE RX) -Continue with 1:1 observation - will need inpatient Psych treatment per Psych when medically clear HYPOKALEMIA -Resolved HTN Stable DVT PROPHYLAXIS SCDs; low risk DISPOSITION Observation . Needs to be transferred to inpatient psych unit , [facility] once medically cleared family at bedside discussed plan of care with patient and family and they are agreeable with plan of care JLUIS Saucedo at bedside during the entire encounter Current Inpatient Medications: Current Inpatient Medications Medications (Trade) Dose Ordered Sig/[place] Route Start Time Stop Time Status Last Admin Dose Admin Acetaminophen (Tylenol Tab) 650 mg Q4H PRN PO 12/24/16 01:00 01/23/17 00:59 12/24/16 19:46 650 MG Lisinopril (Zestril Tab) 2.5 mg DAILY PO 12/24/16 08:00 01/23/17 08:59 12/25/16 09:25 2.5 MG Thiamine HCl (Vitamin B-1 Tab) 100 mg QAM PO 12/25/16 08:00 01/24/17 08:59 12/25/16 09:25 100 MG Folic Acid (Folvite Tab) 1 mg QAM PO 12/24/16 08:00 01/23/17 08:59 12/25/16 09:25 1 MG Multivitamins (Multivitamin Tab) 1 tab QAM PO 12/24/16 08:00 01/23/17 08:59 12/25/16 09:25 1 TAB Miscellaneous 1 ea 1 ea PRN PRN N/A 12/24/16 01:30 12/24/17 01:29 Sodium Chloride (Nss 1000ml) 1,000 ml @ 125 mls/hr Q8H IV 12/25/16 11:00 12/25/16 11:38 75 MLS/HR Ondansetron HCl 4 mg 4 mg Q6H PRN IV. 12/25/16 12:00 01/24/17 11:59 12/25/16 12:20 4 MG Pantoprazole Sodium 40 mg/ Syringe 10 ml @ 5 mls/min DAILY@11 IV 12/26/16 11:00 01/25/17 10:59 Pantoprazole Sodium/Syringe (Protonix Inj/ Syringe) 10 ml @ 5 mls/min TODAY@1230 ONCE IV 12/25/16 12:30 12/25/16 12:31 12/25/16 12:20 5 MLS/MIN Chlordiazepoxide (Librium Cap) 50 mg SEE PROTOCOL TEXT PO 12/25/16 12:15 01/24/17 12:14 UNV Lorazepam (Ativan Inj) PRN Dosing -Active Protocol Q1H PRN IV 12/25/16 12:15 01/24/17 12:14 UNV Miscellaneous Information (Nursing Verbal Med Order) 1 ea ONE ONCE N/A 12/25/16 12:30 12/25/16 12:31 UNV
[2016-12-25] MEDS: CHLORDIAZEPOXIDE 25 MG CAP PO SCH ×2 (14:54→19:57)
[2016-12-25] MEDS: ACETAMINOPHEN 325 MG TAB PO PRN (17:39)
[2016-12-25] MEDS: LORAZEPAM 2 MG/ML 1 ML VIAL IV PRN ×2 (18:36→21:44)
[2016-12-26] VITALS (9 sets, daily range): BP systolic 114–137; BP diastolic 71–86; PULSE 81–90; TEMP 36.5–36.7; O2SAT 97–100
[2016-12-26] MEDS ORDERED: GABAPENTIN 600 MG TAB PO SCH
[2016-12-26] MEDS: LORAZEPAM 2 MG/ML 1 ML VIAL IV PRN ×4 (03:29→20:48)
[2016-12-26] MEDS: SODIUM CHLORIDE 0.9% 1000ML 1,000 ML IV SCH ×2 (03:32→11:31)
[2016-12-26] MEDS: CHLORDIAZEPOXIDE 50MG 1ST DOSE PO SCH ×2 (06:01→11:54)
[2016-12-26 07:11] LABS: BASO ABS # 0.05 K/uL (0-0.2); COMPLETE YES; EOS % 1.7 %; HEMATOCRIT 35.7 % (37-47); IG% 0.2 %; LYMPH % 30.8 %; LYMPH ABS # 1.49 K/uL (1.2-3.4); MEAN CORPUSCULAR HEMOGLOBIN 33.3 pg (25-34); MEAN CORPUSCULAR HGB CONC 33.3 g/dl (32-36); MEAN PLATELET VOLUME 8.9 fL (7.4-10.4); MONO % 8.5 %; NEUT % 57.8 %; PLATELET COUNT 273 K/uL (130-400); RED BLOOD COUNT 3.57 M/uL (4.2-5.4); WHITE BLOOD COUNT 4.84 K/uL (4.8-10.8)
[2016-12-26 07:53] LABS: BUN/CREATININE RATIO 6.1 (10-20); CALCIUM 7.9 mg/dl (8.5-10.1); CREATININE 0.7 mg/dl (0.60-1.20); MAGNESIUM 2.4 mg/dl (1.8-2.4); POTASSIUM 3.6 mmol/L (3.5-5.1)
[2016-12-26] MEDS: LISINOPRIL 2.5 MG TAB PO SCH (07:57)
[2016-12-26] MEDS: THIAMINE HCL 100 MG TAB PO SCH (07:57)
[2016-12-26] MEDS: MULTIVITAMIN TAB PO SCH (07:58)
[2016-12-26] MEDS ORDERED: PANTOprazole INJ 40 MG in SYRINGE 0 ML IV SCH (11:00)
--- NOTE | 2016-12-26 12:23 | Progress Note ---
Medicine Progress Note Date & Time of Visit: Dec 26, 2016 at 12:16. Subjective patient seen resting in bed, mother at and RN at bedside during entire encounter appears more comfortable than yesterday no diaphoresis, less anxious denies hallucinations, nausea, abdominal pain smiles more today, although still has tearful moments, states she misses home\ abnormal tongue movements resolved she does express willingness to undergo further inpatient psych care in 3s when medically cleared denies other symptoms Objective Last 8 Hrs Date Time Temp Pulse Resp B/P Pulse Ox O2 Delivery O2 Flow Rate FiO2 12/26/16 11:44 36.7 90 18 114/71 99 Room Air 12/26/16 08:00 98 Room Air 12/26/16 07:16 36.5 81 18 127/84 98 Room Air Physical Exam: General- oriented x 3, not in distress, speaks in sentences with no effort Eyes-anicteric ENT- tardive dyskenia like movements: resolved Neck- supple, no JVD Lungs- clear breath sounds bilaterally, no rales/wheezes Heart- normal rate, regular rhythm; no murmurs Abdomen- normal bowel sounds, soft, nontender Extremities- no pretibial edema, no calf tenderness Neuro- alert, oriented x 3;no gross focal deficits Skin- warm & dry Laboratory Results: Last 24 Hours Test 12/26/16 06:53 White Blood Count 4.84 K/uL Red Blood Count 3.57 M/uL Hemoglobin 11.9 g/dL Hematocrit 35.7 % Mean Corpuscular Volume 100.0 fL Mean Corpuscular Hemoglobin 33.3 pg Mean Corpuscular Hemoglobin Concent 33.3 g/dl Platelet Count 273 K/uL Mean Platelet Volume 8.9 fL Neutrophils (%) (Auto) 57.8 % Lymphocytes (%) (Auto) 30.8 % Monocytes (%) (Auto) 8.5 % Eosinophils (%) (Auto) 1.7 % Basophils (%) (Auto) 1.0 % Neutrophils # (Auto) 2.80 K/uL Lymphocytes # (Auto) 1.49 K/uL Monocytes # (Auto) 0.41 K/uL Eosinophils # (Auto) 0.08 K/uL Basophils # (Auto) 0.05 K/uL RDW Standard Deviation 48.1 fL RDW Coefficient of Variation 13.1 % Immature Granulocyte % (Auto) 0.2 % Immature Granulocyte # (Auto) 0.01 K/uL Sodium Level 142 mmol/L Potassium Level 3.6 mmol/L Chloride Level 110 mmol/L Carbon Dioxide Level 26 mmol/L Anion Gap 6.0 mmol/L Blood Urea Nitrogen 4 mg/dl Creatinine 0.70 mg/dl Est Creatinine Clear Calc Drug Dose 87.7 ml/min Estimated GFR () 121.3 Estimated GFR (Non- 104.6 BUN/Creatinine Ratio 6.1 Random Glucose 88 mg/dl Calcium Level 7.9 mg/dl Magnesium Level 2.4 mg/dl Assessment & Plan ALCOHOL VS. BENZODIAZEPENE WITHDRAWAL - changed Gabapentin to Librium PO taper Day 2, PRN Ativan based on Alc With Protocol IV fluids, folate, thiamine - discussed with Psych, they are agreeable with above -- still required IV ativan this AM, CIWA score 6 as per RN improved today compared to yesterday anticipate further improvement tomorrow -- discussed with Psych SVC POLYSUBSTANCE OVERDOSE-SUICIDE ATTEMPT (Benzo/alcohol/ACEI/ANTIHISTAMINE RX) -Continue with 1:1 observation - will need inpatient Psych treatment per Psych when medically clear HYPOKALEMIA -Resolved HTN - Stable continue Lisinopril DVT PROPHYLAXIS start Lovenox DISPOSITION Observation . Needs to be transferred to inpatient psych unit , [facility] once medically cleared mother at bedside discussed plan of care with patient and mother and they are agreeable with plan of care RN at bedside during the entire encounter Current Inpatient Medications: Current Inpatient Medications Medications (Trade) Dose Ordered Sig/Franklyn Route Start Time Stop Time Status Last Admin Dose Admin Acetaminophen (Tylenol Tab) 650 mg Q4H PRN PO 12/24/16 01:00 01/23/17 00:59 12/25/16 17:39 650 MG Lisinopril (Zestril Tab) 2.5 mg DAILY PO 12/24/16 08:00 01/23/17 08:59 12/26/16 07:57 2.5 MG Thiamine HCl (Vitamin B-1 Tab) 100 mg QAM PO 12/25/16 08:00 01/24/17 08:59 12/26/16 07:57 100 MG Folic Acid (Folvite Tab) 1 mg QAM PO 12/24/16 08:00 01/23/17 08:59 12/26/16 07:58 1 MG Multivitamins (Multivitamin Tab) 1 tab QAM PO 12/24/16 08:00 01/23/17 08:59 12/26/16 07:58 1 TAB Miscellaneous 1 ea 1 ea PRN PRN N/A 12/24/16 01:30 12/24/17 01:29 12/25/16 11:38 1 EA Sodium Chloride (Nss 1000ml) 1,000 ml @ 125 mls/hr Q8H IV 12/25/16 11:00 01/24/17 10:59 12/26/16 11:31 125 MLS/HR Ondansetron HCl 4 mg 4 mg Q6H PRN IV. 12/25/16 12:00 01/24/17 11:59 12/25/16 12:36 4 MG Pantoprazole Sodium/Syringe (Protonix Inj/ Syringe) 10 ml @ 5 mls/min DAILY@11 IV 12/26/16 11:00 01/25/17 10:59 12/26/16 11:28 5 MLS/MIN Lorazepam (Ativan Inj) PRN Dosing -Active Cindi... Q1H PRN IV 12/25/16 12:15 01/24/17 12:14 12/26/16 07:59 1 MG Chlordiazepoxide (Librium Cap) 50 mg Q8H PO 12/26/16 20:00 12/27/16 12:01 Chlordiazepoxide (Librium Cap) 25 mg Q8H PO 12/27/16 20:00 12/28/16 12:01 Chlordiazepoxide (Librium Cap) 10 mg Q12H PO 12/29/16 00:00 12/29/16 12:01
[2016-12-26] MEDS ORDERED: ENOXAPARIN 40 MG/0.4 ML SYR SQ ONE (13:00)
[2016-12-26] MEDS: CHLORDIAZEPOXIDE 50MG Q8H DOSE PO SCH (20:48)
[2016-12-27] VITALS (9 sets, daily range): BP systolic 125–139; BP diastolic 76–84; PULSE 75–98; TEMP 36.3–36.9; O2SAT 95–100
[2016-12-27] MEDS: LORAZEPAM 2 MG/ML 1 ML VIAL IV PRN ×2 (04:07→08:25)
[2016-12-27] MEDS: CHLORDIAZEPOXIDE 50MG Q8H DOSE PO SCH ×2 (04:07→12:19)
[2016-12-27 06:25] LABS: BASO % 0.7 %; BASO ABS # 0.04 K/uL (0-0.2); COMPLETE YES; EOS % 2.9 %; IG% 0.2 %; LYMPH % 29.5 %; LYMPH ABS # 1.75 K/uL (1.2-3.4); MEAN CELL VOLUME 99.1 fL (80-100); MEAN CORPUSCULAR HEMOGLOBIN 32.7 pg (25-34); MEAN CORPUSCULAR HGB CONC 32.9 g/dl (32-36); MEAN PLATELET VOLUME 9.4 fL (7.4-10.4); MONO % 6.9 %; NEUT % 59.8 %; PLATELET COUNT 283 K/uL (130-400); RED BLOOD COUNT 3.43 M/uL (4.2-5.4); WHITE BLOOD COUNT 5.93 K/uL (4.8-10.8)
[2016-12-27 06:44] LABS: BUN/CREATININE RATIO 7.7 (10-20); CALCIUM 8.2 mg/dl (8.5-10.1); CREATININE 0.72 mg/dl (0.60-1.20); MAGNESIUM 2.3 mg/dl (1.8-2.4); POTASSIUM 3.3 mmol/L (3.5-5.1)
[2016-12-27] MEDS: LISINOPRIL 2.5 MG TAB PO SCH (08:24)
[2016-12-27] MEDS: PANTOprazole SOD 40 MG TAB PO SCH (08:24)
[2016-12-27] MEDS: MULTIVITAMIN TAB PO SCH (08:24)
[2016-12-27] MEDS: ENOXAPARIN 40 MG/0.4 ML SYR SQ SCH (08:25)
[2016-12-27] MEDS ORDERED: POTASSIUM CHLORIDE 20 MEQ TABCR PO ONE (08:30)
[2016-12-27] MEDS: THIAMINE HCL 100 MG TAB PO SCH (11:12)
[2016-12-27] MEDS ORDERED: GABAPENTIN 600 MG TAB PO SCH (12:00)
--- NOTE | 2016-12-27 13:48 | Progress Note ---
Medicine Progress Note Date & Time of Visit: Dec 27, 2016 at 13:42. Subjective patient seen with JORJE Batista at bedside patient sitting up in bed, appears comfortable required 1mg of Ativan this AM states she is feeling better compared to yesterday no hallucinations, nausea has some anxiety- concerned about Ativan taper in 3s, bed availability in 3s, etc. patient reassured and she seemed to be better after denies chest pain, dyspnea, palpitations, headache no other symptoms Objective Last 8 Hrs Date Time Temp Pulse Resp B/P Pulse Ox O2 Delivery O2 Flow Rate FiO2 12/27/16 12:00 98 Room Air 12/27/16 08:00 98 Room Air 12/27/16 07:44 36.8 92 18 138/76 99 Room Air Physical Exam: General- oriented x 3, not in distress, speaks in sentences with no effort Eyes-anicteric ENT- tardive dyskenia like movements: resolved Neck- no JVD Lungs- clear breath sounds b/l Heart- normal rate, regular rhythm; no murmurs Abdomen- normal bowel sounds, soft, nontender Extremities- no pretibial edema, no calf tenderness, no tremors Neuro- alert, oriented x 3;no gross focal deficits Skin- warm & dry Laboratory Results: Last 24 Hours Test 12/27/16 05:37 White Blood Count 5.93 K/uL Red Blood Count 3.43 M/uL Hemoglobin 11.2 g/dL Hematocrit 34.0 % Mean Corpuscular Volume 99.1 fL Mean Corpuscular Hemoglobin 32.7 pg Mean Corpuscular Hemoglobin Concent 32.9 g/dl Platelet Count 283 K/uL Mean Platelet Volume 9.4 fL Neutrophils (%) (Auto) 59.8 % Lymphocytes (%) (Auto) 29.5 % Monocytes (%) (Auto) 6.9 % Eosinophils (%) (Auto) 2.9 % Basophils (%) (Auto) 0.7 % Neutrophils # (Auto) 3.55 K/uL Lymphocytes # (Auto) 1.75 K/uL Monocytes # (Auto) 0.41 K/uL Eosinophils # (Auto) 0.17 K/uL Basophils # (Auto) 0.04 K/uL RDW Standard Deviation 47.4 fL RDW Coefficient of Variation 13.0 % Immature Granulocyte % (Auto) 0.2 % Immature Granulocyte # (Auto) 0.01 K/uL Sodium Level 143 mmol/L Potassium Level 3.3 mmol/L Chloride Level 108 mmol/L Carbon Dioxide Level 30 mmol/L Anion Gap 5.0 mmol/L Blood Urea Nitrogen 6 mg/dl Creatinine 0.72 mg/dl Est Creatinine Clear Calc Drug Dose 81.8 ml/min Estimated GFR () 117.2 Estimated GFR (Non- 101.1 BUN/Creatinine Ratio 7.7 Random Glucose 100 mg/dl Calcium Level 8.2 mg/dl Magnesium Level 2.3 mg/dl Assessment & Plan ALCOHOL VS. BENZODIAZEPENE WITHDRAWAL - changed Gabapentin to Librium PO taper Day 3, PRN Ativan based on Alc With Protocol given IV fluids - discussed with Psych, they are agreeable with above -- still required IV ativan this AM, but seems to be improving overall improving daily continue observation in Tele for now, possible d/c in AM -- discussed with Psych SVC POLYSUBSTANCE OVERDOSE-SUICIDE ATTEMPT (Benzo/alcohol/ACEI/ANTIHISTAMINE RX) - Continue with 1:1 observation - will need inpatient Psych treatment per Psych when medically clear discussed with Psych HYPOKALEMIA -Resolved HTN - Stable continue Lisinopril DVT PROPHYLAXIS Lovenox DISPOSITION Observation . Needs to be transferred to inpatient psych unit , [facility] once medically cleared mother and father at bedside discussed plan of care with patient and parents and they are agreeable with plan of care RN at bedside during the entire encounter Current Inpatient Medications: Current Inpatient Medications Medications (Trade) Dose Ordered Sig/[place] Route Start Time Stop Time Status Last Admin Dose Admin Acetaminophen (Tylenol Tab) 650 mg Q4H PRN PO 12/24/16 01:00 01/23/17 00:59 12/25/16 17:39 650 MG Lisinopril (Zestril Tab) 2.5 mg DAILY PO 12/24/16 08:00 01/23/17 08:59 12/27/16 08:24 2.5 MG Thiamine HCl (Vitamin B-1 Tab) 100 mg QAM PO 12/25/16 08:00 01/24/17 08:59 12/27/16 11:12 100 MG Folic Acid (Folvite Tab) 1 mg QAM PO 12/24/16 08:00 01/23/17 08:59 12/27/16 08:24 1 MG Multivitamins (Multivitamin Tab) 1 tab QAM PO 12/24/16 08:00 01/23/17 08:59 12/27/16 08:24 1 TAB Miscellaneous (Iv Fluids Completed) 1 ea PRN PRN N/A 12/24/16 01:30 12/24/17 01:29 12/25/16 11:38 1 EA Ondansetron HCl (Zofran Inj) 4 mg Q6H PRN IV. 12/25/16 12:00 01/24/17 11:59 12/25/16 12:36 4 MG Lorazepam (Ativan Inj) PRN Dosing -Active Cindi... Q1H PRN IV 12/25/16 12:15 01/24/17 12:14 12/27/16 08:25 1 MG Chlordiazepoxide (Librium Cap) 25 mg Q8H PO 12/27/16 20:00 12/28/16 12:01 Chlordiazepoxide (Librium Cap) 10 mg Q12H PO 12/29/16 00:00 12/29/16 12:01 Enoxaparin Sodium (Lovenox Inj) 40 mg QAM SQ 12/27/16 09:00 01/26/17 08:59 12/27/16 08:25 40 MG Pantoprazole Sodium (Protonix Tab) 40 mg QAM PO 12/27/16 09:00 01/26/17 08:59 12/27/16 08:24 40 MG
[2016-12-27] MEDS: LORAZEPAM 1 MG TAB PO PRN ×2 (14:41→20:24)
[2016-12-27] MEDS: CHLORDIAZEPOXIDE 25MG Q8H DOSE PO SCH (20:24)
[2016-12-28] MEDS: LORAZEPAM 1 MG TAB PO PRN ×3 (02:43→13:15)
[2016-12-28] MEDS: CHLORDIAZEPOXIDE 25MG Q8H DOSE PO SCH ×2 (02:44→11:45)
[2016-12-28 04:40] VITALS: BP 136/84; PULSE 77; TEMP 36.7; O2SAT 93
[2016-12-28 06:45] LABS: BASO % 0.8 %; BASO ABS # 0.05 K/uL (0-0.2); COMPLETE YES; HEMATOCRIT 35.9 % (37-47); IG% 0.2 %; LYMPH % 27.6 %; LYMPH ABS # 1.76 K/uL (1.2-3.4); MEAN CELL VOLUME 99.2 fL (80-100); MEAN CORPUSCULAR HEMOGLOBIN 32.6 pg (25-34); MEAN CORPUSCULAR HGB CONC 32.9 g/dl (32-36); MEAN PLATELET VOLUME 9.2 fL (7.4-10.4); NEUT % 57.4 %; PLATELET COUNT 301 K/uL (130-400); RED BLOOD COUNT 3.62 M/uL (4.2-5.4); WHITE BLOOD COUNT 6.38 K/uL (4.8-10.8)
[2016-12-28 07:33] LABS: BUN/CREATININE RATIO 10.7 (10-20); CALCIUM 8.5 mg/dl (8.5-10.1); CREATININE 0.83 mg/dl (0.60-1.20); MAGNESIUM 2.4 mg/dl (1.8-2.4); POTASSIUM 3.8 mmol/L (3.5-5.1)
[2016-12-28] MEDS: MULTIVITAMIN TAB PO SCH (07:55)
[2016-12-28] MEDS: THIAMINE HCL 100 MG TAB PO SCH (07:55)
[2016-12-28] MEDS: LISINOPRIL 2.5 MG TAB PO SCH (07:56)
[2016-12-28] MEDS: ENOXAPARIN 40 MG/0.4 ML SYR SQ SCH (07:56)
[2016-12-28] MEDS: PANTOprazole SOD 40 MG TAB PO SCH (07:56)
[2016-12-28 08:00] VITALS: BP 119/84; PULSE 91; TEMP 36.8; O2SAT 98
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
--- NOTE | 2016-12-28 13:27 | Progress Note ---
Medicine Progress Note Date & Time of Visit: Dec 28, 2016 at 11:50. Subjective seen with mother and [employer]IX[employer]ENDER Yesenia at bedside eating lunch, pleasant, smiling, comfortable states she feels much better overall no tremors, diaphoresis, hallucinations anxiety also improved eager to start treatment in 3s denies suicidal ideations, states mood is ok no other symptoms Objective Last 8 Hrs Date Time Temp Pulse Resp B/P Pulse Ox O2 Delivery O2 Flow Rate FiO2 12/28/16 08:00 Room Air 98 12/28/16 08:00 36.8 91 16 119/84 98 Room Air 12/28/16 04:40 36.7 77 18 136/84 93 Room Air 12/28/16 04:00 Room Air Physical Exam: General- oriented x 3, not in distress, speaks in sentences with no effort Eyes-anicteric ENT- tardive dyskinesia like movements: resolved Neck- no JVD Lungs- clear breath sounds b/l, no rales/wheezes Heart- normal rate, regular rhythm; no murmurs Abdomen- normal bowel sounds, soft, nontender Extremities- no pretibial edema, no calf tenderness, no tremors Neuro- alert, oriented x 3;no gross focal deficits Skin- warm & dry Psych- pleasant, cooperative, normal affect Laboratory Results: Last 24 Hours Test 12/28/16 06:15 White Blood Count 6.38 K/uL Red Blood Count 3.62 M/uL Hemoglobin 11.8 g/dL Hematocrit 35.9 % Mean Corpuscular Volume 99.2 fL Mean Corpuscular Hemoglobin 32.6 pg Mean Corpuscular Hemoglobin Concent 32.9 g/dl Platelet Count 301 K/uL Mean Platelet Volume 9.2 fL Neutrophils (%) (Auto) 57.4 % Lymphocytes (%) (Auto) 27.6 % Monocytes (%) (Auto) 11.0 % Eosinophils (%) (Auto) 3.0 % Basophils (%) (Auto) 0.8 % Neutrophils # (Auto) 3.67 K/uL Lymphocytes # (Auto) 1.76 K/uL Monocytes # (Auto) 0.70 K/uL Eosinophils # (Auto) 0.19 K/uL Basophils # (Auto) 0.05 K/uL RDW Standard Deviation 47.0 fL RDW Coefficient of Variation 12.9 % Immature Granulocyte % (Auto) 0.2 % Immature Granulocyte # (Auto) 0.01 K/uL Sodium Level 142 mmol/L Potassium Level 3.8 mmol/L Chloride Level 107 mmol/L Carbon Dioxide Level 29 mmol/L Anion Gap 6.0 mmol/L Blood Urea Nitrogen 9 mg/dl Creatinine 0.83 mg/dl Est Creatinine Clear Calc Drug Dose 70.9 ml/min Estimated GFR () 98.7 Estimated GFR (Non- 85.2 BUN/Creatinine Ratio 10.7 Random Glucose 90 mg/dl Calcium Level 8.5 mg/dl Magnesium Level 2.4 mg/dl Assessment & Plan ALCOHOL VS. BENZODIAZEPENE WITHDRAWAL - changed Gabapentin to Librium PO taper Day 12/05, PRN Ativan based on Alc With Protocol given IV fluids - transitioned to PO Ativan per Alcohol Withdrawal Protocol - withdrawal symptoms improved -- continue Librium taper (last day tomorrow) continue PO Ativan per Alcohol Withdrawal Protocol monitor closely for possible signs of worsening withdrawal POLYSUBSTANCE OVERDOSE-SUICIDE ATTEMPT (Benzo/alcohol/ACEI/ANTIHISTAMINE RX) - placed on 1:1 observation - medically cleared for transfer to for inpatient Psych treatment HYPOKALEMIA -Resolved HYPERTENSION - Stable continue Lisinopril DVT PROPHYLAXIS Lovenox given DISPOSITION discussed with Psych Liaison Yesenia anticipate to have bed available for patient today in transfer to when bed available follow up with PCP 1 week post discharge in Current Inpatient Medications: Current Inpatient Medications Medications (Trade) Dose Ordered Sig/Franklyn Route Start Time Stop Time Status Last Admin Dose Admin Acetaminophen (Tylenol Tab) 650 mg Q4H PRN PO 12/24/16 01:00 01/23/17 00:59 12/25/16 17:39 650 MG Lisinopril (Zestril Tab) 2.5 mg DAILY PO 12/24/16 08:00 01/23/17 08:59 12/28/16 07:56 2.5 MG Thiamine HCl (Vitamin B-1 Tab) 100 mg QAM PO 12/25/16 08:00 01/24/17 08:59 12/28/16 07:55 100 MG Folic Acid (Folvite Tab) 1 mg QAM PO 12/24/16 08:00 01/23/17 08:59 12/28/16 07:55 1 MG Multivitamins (Multivitamin Tab) 1 tab QAM PO 12/24/16 08:00 01/23/17 08:59 12/28/16 07:55 1 TAB Miscellaneous (Iv Fluids Completed) 1 ea PRN PRN N/A 12/24/16 01:30 12/24/17 01:29 12/25/16 11:38 1 EA Ondansetron HCl (Zofran Inj) 4 mg Q6H PRN IV. 12/25/16 12:00 01/24/17 11:59 12/25/16 12:36 4 MG Chlordiazepoxide (Librium Cap) 25 mg Q8H PO 12/27/16 20:00 12/28/16 12:01 12/28/16 11:45 25 MG Chlordiazepoxide (Librium Cap) 10 mg Q12H PO 12/29/16 00:00 12/29/16 12:01 Enoxaparin Sodium (Lovenox Inj) 40 mg QAM SQ 12/27/16 09:00 01/26/17 08:59 12/28/16 07:56 40 MG Pantoprazole Sodium (Protonix Tab) 40 mg QAM PO 12/27/16 09:00 01/26/17 08:59 12/28/16 07:56 40 MG Lorazepam (Ativan Tab) PRN Dosing -Active Protocol UD PRN PO 12/27/16 14:00 01/26/17 13:59 12/28/16 07:59 1 MG
[2016-12-28] MEDS ORDERED: MULT-589 PO (13:31)
[2016-12-28] MEDS ORDERED: LBR10 PO (13:31)
[2016-12-28] MEDS ORDERED: FLV1 PO (13:31)
[2016-12-28] MEDS ORDERED: LSN25 PO (13:31)
[2016-12-28] MEDS ORDERED: THM100 PO (13:31)
[2016-12-28] MEDS ORDERED: ATV1 PO (13:31)
--- NOTE | 2016-12-28 13:34 | Discharge Instructions ---
Discharge Instructions Date of Service Dec 28, 2016. Admission Reason for Admission: Drug Overdose, Intentional Discharge Discharge Diagnosis / Problem: DRUG OVERDOSE Discharge Goals Goal(s): Diagnostic testing, Therapeutic intervention Activity Recommendations Activity Level: Ambulates in room (1:1 OBSERVATION) Therapies: Physical Therapy . Additional Information Patient informed of condition: Yes Advance Directives: No (UNKNOWN) DNR: No (PATIENT IS FULL CODE) Level of Care: Other (PSYCH UINIT) Communicable Disease: No Prognosis: Stable Instructions / Follow-Up Instructions / Follow-Up PLEASE REFER TO HOSPITAL DISCHARGE SUMMARY. Current Hospital Diet Patient's current hospital diet: AHA Diet (Heart Healthy) Discharge Diet Recommended Diet: AHA Diet (Heart Healthy) Pending Studies Studies pending at discharge: no Physician Orders On Transfer Special Precautions: 1:1 OBSERVATION, MONITOR FOR SIGNS OF WITHDRAWAL, MONITOR BP DAILY. Medical Emergencies . Who to Call and When: Medical Emergencies: If at any time you feel your situation is an emergency, please call 911 immediately. . Non-Emergent Contact Non-Emergency issues call your: Primary Care Provider . Past History Medical & Surgical History: (1) Anxiety (2) Bipolar disorder (3) Hypertension (4) Noncompliance with medication regimen (5) Chest pain (6) Suicidal ideation (7) Toe cyanosis (8) Avulsion of skin of foot (9) Suicide attempt (10) Acute alcohol intoxication (11) Drug overdose, intentional (12) ADD (attention deficit disorder) (13) Depression (14) No significant past surgical history . "Provider Documentation" section prepared by Brennen Mcdonough. . Core Measure Problem Core Measures: None
--- NOTE | 2016-12-28 13:38 | Discharge Summary ---
Discharge Summary Date of Service Dec 28, 2016. Discharge Summary Admission Date: Dec 26, 2016 at 12:15 Discharge Date: Dec 28, 2016 Discharge Disposition: Acute care mental health Principal Diagnosis: DRUG OVERDOSE, ALCOHOL VS. BENZODIAZEPENE WITHDRAWAL Secondary Diagnoses/Problems: PLEASE REFER TO HOSPITAL COURSE BELOW. Consultations: PSYCHIATRY- DR. EATON Pending Studies/Follow-Up: PLEASE REFER TO HOSPITAL COURSE BELOW. Medication Reconciliation New Medications: Chlordiazepoxide (Chlordiazepoxide HCl) 10 Mg Cap 10 MG PO Q12H for 1 Day, #2 CAP Folic Acid (Folic Acid) 1 Mg Tab 1 MG PO QAM for 5 Days, #5 TAB Lisinopril (Lisinopril) 2.5 Mg Tab 2.5 MG PO DAILY for 30 Days, #30 TAB Lorazepam (Lorazepam) 1 Mg Tab 1-3 MG PO UD PRN for symptoms of alcohol withdrawal for 2 Days, TAB Multivitamins (Daily Rj) 1 Tab Tab 1 TAB PO QAM for 5 Days, #5 TAB Thiamine HCl (Vitamin B-1) 100 Mg Tab 100 MG PO QAM for 5 Days, #5 TAB Continued Medications: Carboxymethylcellulose Sodium (Refresh Tears) 0.5 % Servando Unknown Dose OP DIRECTED Discontinued Medications: Cephalexin Monohydrate (Keflex) 500 Mg Cap 500 MG PO QID, CAP FILLED SCRIPT 11/12/16 FOR 5 DAYS. Lisinopril (Lisinopril) 10 Mg Tab 10 MG PO BID Lorazepam (Lorazepam) 1 Mg Tab 0.5-1 MG PO TID Methylphenidate HCl (Methylphenidate HCl) 20 Mg Tab 20 MG PO BID TAKE MED ON AN EMPTY STOMACH Sertraline (Zoloft) 100 Mg Tab 200 MG PO HS, TAB Trazodone Hcl (Trazodone) 50 Mg Tab 50 MG PO HS PRN for Sleep Venlafaxine Hcl (Effexor) 37.5 Mg Tab 75 MG PO QDB, TAB Admission Information HPI (per Admitting provider): PRIMARY CARE DOCTOR: Dr. Lake. Patient however requesting that records of current hospital confinement not be forwarded to PCP for now. Hx obtained from px and records. CHIEF COMPLAINT: "I should be ." HISTORY OF PRESENT ILLNESS: Medical history significant for mood DSO, anxiety, past tobacco abuse, hypertension, attention deficit as per records. Recent confinement in June 2015 for alcohol intoxication and withdrawal. The last few days the patient undergoing a lot of stress. Last night the patient found unresponsive with a suicide note at home. Patient noted to be lethargic. Patient found with empty pill bottles around her, lisinopril, Ativan and diphenhydramine. As per the patient's parents, patient buys medications from the streets; frequently talks about suicide. MEDICAL HISTORY: As above. SURGERIES: None. HOME MEDICATIONS: Include Refresh, Keflex, lisinopril, lorazepam, methylphenidate, Zoloft, trazodone, Effexor. ALLERGIES: No known drug allergies. FAMILY HISTORY: Hypertension. PERSONAL AND SOCIAL HISTORY: Past tobacco abuse, alcohol abuse as per records although patient denies this. 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 REVIEW OF SYSTEMS: As per HPI, all other ROS negative. Physical Exam (per Admitting): VITAL SIGNS: Blood pressure was noted to be 120/80, pulse rate 91, RR 16, temperature 36.4, sats 100 on room air. GENERAL: Noted to be crying, anxious, no respiratory distress. SKIN: Normal color. HEENT: [place] palpebral conjunctivae. Dry mucosa. NECK: No JVD. supple, abrasion on the left neck. CHEST: Clear to auscultation. HEART: Regular rate and rhythm. ABDOMEN: Soft. EXTREMITIES: No edema, no tenderness. NEUROLOGIC: No gross focality except for dilated pupils Hospital Course ALCOHOL VS. BENZODIAZEPENE WITHDRAWAL - patient observed to have worsening of alcohol withdrawal symptoms on hospital day 2 changed Gabapentin protocol changed to Librium PO taper Day 4/, added PRN Ativan based on Alc With Protocol after discussion with Psych given IV fluids - also observed to have tardive dyskinesia movement- Haldol discontinued - transferred to [facility], improved gradually - transitioned to PO Ativan per Alcohol Withdrawal Protocol - withdrawal symptoms improved -- continue Librium taper (last day tomorrow) continue PO Ativan per Alcohol Withdrawal Protocol monitor closely for possible signs of worsening withdrawal POLYSUBSTANCE OVERDOSE-SUICIDE ATTEMPT (Benzo/alcohol/ACEI/ANTIHISTAMINE RX) - placed on 1:1 observation - medically cleared for transfer to for inpatient Psych treatment discussed with Psych Liaison HYPOKALEMIA -Resolved HYPERTENSION - Stable - Lisinopril decreased to 2.5mg po daily, Bp seems to be controlled overall continue Lisinopril 2.5mg po daily - monitor bp daily DVT PROPHYLAXIS Lovenox given DISPOSITION discussed with Psych Liaison Yesenia anticipate to have bed available for patient today in 3s transfer to 3s when bed available follow up with PCP 1 week post discharge in 3s discussed with patient and her mother at bedside both are agreeable with plan of care Total time spent on discharge = 40 minutes This includes examination of the patient, discharge planning, medication reconciliation, and communication with other providers. Discharge Instructions Discharge Instructions Date of Service Dec 28, 2016. Admission Reason for Admission: Drug Overdose, Intentional Discharge Discharge Diagnosis / Problem: DRUG OVERDOSE Discharge Goals Goal(s): Diagnostic testing, Therapeutic intervention Activity Recommendations Activity Level: Ambulates in room (1:1 OBSERVATION) Therapies: Physical Therapy . Additional Information Patient informed of condition: Yes Advance Directives: No (UNKNOWN) DNR: No (PATIENT IS FULL CODE) Level of Care: Other (PSYCH UINIT) Communicable Disease: No Prognosis: Stable Instructions / Follow-Up Instructions / Follow-Up PLEASE REFER TO HOSPITAL DISCHARGE SUMMARY. Current Hospital Diet Patient's current hospital diet: AHA Diet (Heart Healthy) Discharge Diet Recommended Diet: AHA Diet (Heart Healthy) Pending Studies Studies pending at discharge: no Physician Orders On Transfer Special Precautions: 1:1 OBSERVATION, MONITOR FOR SIGNS OF WITHDRAWAL, MONITOR BP DAILY. Medical Emergencies . Who to Call and When: Medical Emergencies: If at any time you feel your situation is an emergency, please call 911 immediately. . Non-Emergent Contact Non-Emergency issues call your: Primary Care Provider . Past History Medical & Surgical History: (1) Anxiety (2) Bipolar disorder (3) Hypertension (4) Noncompliance with medication regimen (5) Chest pain (6) Suicidal ideation (7) Toe cyanosis (8) Avulsion of skin of foot (9) Suicide attempt (10) Acute alcohol intoxication (11) Drug overdose, intentional (12) ADD (attention deficit disorder) (13) Depression (14) No significant past surgical history . "Provider Documentation" section prepared by Brennen Mcdonough. . Core Measure Problem Core Measures: None
[2016-12-28 15:42] VITALS: BP 120/80; PULSE 84; TEMP 36.9; O2SAT 100
[2016-12-28] MEDS ORDERED: DOCUSATE SODIUM/SENNA 50/8.6MG TAB PO ONE (16:13)
[2016-12-28] MEDS ORDERED: DOCUSATE SODIUM/SENNA 50/8.6MG TAB PO PRN (16:15)
[2016-12-28] MEDS ORDERED: ACETAMINOPHEN 500 MG TAB PO PRN (16:15)
[2016-12-28 16:50] VITALS: BP 120/80; PULSE 84; TEMP 36.9; O2SAT 100
[2016-12-28] MEDS ORDERED: RTL20 PO (18:52)
[2016-12-28] MEDS ORDERED: VENL1CAP92 PO (18:52)
[2016-12-28] MEDS ORDERED: ATV/1 PO (18:52)
[2016-12-28] MEDS ORDERED: LISI-461 PO (18:53)
[2016-12-28] MEDS ORDERED: BCPILLS PO (18:54)
[2016-12-28] MEDS ORDERED: TRAZ50TA35 PO (18:54)
[2016-12-29] MEDS ORDERED: CHLORDIAZEPOXIDE 10MG Q12H DOSE PO SCH
== END 2016-12-28 17:14 | DRG 885 ==
LOC: ENRESERVTM → ENRESERVDT → C.EDA 21:16 → C.4E 12-24 00:52 → C.2T 12-25 14:11 → OBSVTOIN 12-26 12:15
PROVIDERS: ADMIT Internal Medicine; ATTEND Internal Medicine
DX: F31.9 Bipolar disorder, unspecified (principal); F10.239 Alcohol dependence with withdrawal, unspecified; F19.939 Other psychoactive substance use, unspecified with withdrawal, unspecified; T42.4X2A Poisoning by benzodiazepines, intentional self-harm, initial encounter; T51.92XA Toxic effect of unspecified alcohol, intentional self-harm, initial encounter; T45.0X2A Poisoning by antiallergic and antiemetic drugs, intentional self-harm, initial encounter; T46.4X2A Poisoning by angiotensin-converting-enzyme inhibitors, intentional self-harm, initial encounter; Y90.8 Blood alcohol level of 240 mg/100 ml or more; F10.229 Alcohol dependence with intoxication, unspecified; E87.6 Hypokalemia; I10 Essential (primary) hypertension; F41.9 Anxiety disorder, unspecified; Z87.891 Personal history of nicotine dependence; Z79.899 Other long term (current) drug therapy

== ENCOUNTER 2016-12-28 17:45 | Inpatient (IN) | payer BC ==
[~2016-12-28] VITALS: Ht 162.6 cm; Wt 50.9 kg
[~2016-12-28 17:45] MED LIST changes: -BCPILLS PO; +CARB0.5D28 OP; +CEPH500C2 PO; +EFF/375 PO; +FLV1 PO; +LBR10 PO; +LSN25 PO; +METH20TA66 PO; +MULT-589 PO; -RTL10 PO; +SERT-234 PO; +THM100 PO
[2016-12-28] MEDS ORDERED: MAGNESIUM HYDROXIDE SUSP 30 ML UDC PO PRN (18:15)
[2016-12-28] MEDS ORDERED: ALUMINUM/MAGNESIUM SUSP 30 ML UDC PO PRN (18:15)
[2016-12-28] MEDS ORDERED: SODIUM CHLORIDE 0.65% NA SOLN 45 ML (OCEAN) PRN (18:15)
[2016-12-28] MEDS ORDERED: BISMUTH SUBSALICYLATE PER ML OMNICELL CHARGE PO PRN (18:15)
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
[2016-12-28] MEDS ORDERED: RTL20 PO (18:52)
[2016-12-28] MEDS ORDERED: VENL1CAP92 PO (18:52)
[2016-12-28] MEDS ORDERED: ATV/1 PO (18:52)
[2016-12-28] MEDS ORDERED: LISI-461 PO (18:53)
[2016-12-28] MEDS ORDERED: BCPILLS PO (18:54)
[2016-12-28] MEDS ORDERED: TRAZ50TA35 PO (18:54)
[2016-12-28] MEDS: CHLORDIAZEPOXIDE 10 MG CAP PO SCH (19:14)
[2016-12-28 19:27] VITALS: BP 140/90; PULSE 91; TEMP 36.8; Ht 162.6 cm; Wt 50.9 kg
[2016-12-28 21:03] VITALS: BP 167/98; PULSE 93; TEMP 36.8
[2016-12-28] MEDS: hydrOXYzine HCL 25 MG TAB PO PRN ×2 (21:44→22:21)
[2016-12-29] MEDS: hydrOXYzine HCL 25 MG TAB PO PRN ×4 (03:14→23:48)
[2016-12-29] MEDS: CHLORDIAZEPOXIDE 10 MG CAP PO SCH (06:15)
[2016-12-29 07:08] VITALS: BP_SYST 104; BP_SYST 106; BP_DIAS 68; BP_DIAS 73; PULSE 90; PULSE 93; TEMP 36.8
--- NOTE | 2016-12-29 08:22 | Psychiatric Progress Notes ---
Progress Note Date of Service Dec 29, 2016. Interval History Brittny Stoddard is a 46-year-old female who currently lives in [place] with her parents. She was initially admitted to the medical floor on 12/23/16 and consult was placed by Dr. Sandoval for suicide attempt by OD on multiple medications. The patient initially stated that she didn't remember coming to hospital and uncooperative with the initial interview, stating that she did not want inpatient psychiatric hospitalization. There was a 302 warrant on her chart by her father, but patient ultimately by the time of medical clearance, she was more cooperative and was amenable to sign a 201. Chief Complaint "Actually, ok, I was really upset". Subjective Patient was seen & assessed interval progress reviewed with nursing. Staff report she slept only 4.5 hours despite getting hydroxyzine 50mg x 2 for insomnia, and also got hydroxyzine 25mg for anxiety. She got her last dose of Librium this am, and has not scored on the AWSS. She has been anxious, irritable , and describes mood as "erratic." She has been repeatedly asking for Ativan. Today, she says she wants to make sure we have lots of time to talk, as "the other doctors were too fast." She is primarily concerned about being able to get out in time to go to an event next weekend. She says she was initially " very agitated about being here, but now my parents kind of convinced me to try to get better." She processed her suicide attempt, "I really don't think I wanted to be , I think I just wanted my cat, he was pure love." She says she "thought she could be in heaven with him for a little bit, but I didn't really want to be ." Of her suicide note, she says she "wrote them a letter , wanted them to know they'd be okay without me, but I'm sure they wouldn't." She says she "drank too much and took Benadryl," and now denies that she OD'd on Ativan. She says she "is not an alcoholic, I can go days without drinking, but when I drink I get in trouble." She has been hospitalized before for alcohol overdose. She talked about her cat and how much she loved him. Attempted to review her past medications, but she repeatedly returned to talking about her stimulants and benzos. She says she absolutely will not take anything that can cause weight gain, as she was on Abilify an it made her gain weight, and "I had an eating disorder and I cannot gain weight." She thinks she was on Effexor 37.5mg for about 10 days, and did not think it was working yet, and wants to go back onto it. She does not want to change medications and wants to go back on the Effexor. She repeatedly says she doesn't want to be here, and wants to get back to her life and family. She is very focused on wanting Ativan , saying the hospitalist told her she would get at least 4mg a daily, and her outpatient psychiatrist told her she'd have to be tapered off it over months. Discussed trial of gabapentin and she declines, saying she had it in the past and "it didn't do anything." Sleep Information Total Hours of Sleep: 4.50 Mental Status Exam During interview pt is: alert and oriented, cooperative Appearance: appropriately dressed, appeared stated age Eye contact is: good Motor behavior is: steady gait & station, no abnormal motor movements Speech: is pressured (hyperverbal) Affect: tearful, labile, anxious Mood is: anxious Thought process: goal directed Thought content: reality based without delusions Suicidal thought are: denied Homicidal thoughts are: denied Hallucinations: denies auditory, denies visual Cognition: other (attention impaired) Intelligence estimated to be: average Insight: severely impaired Judgement: severely impaired Impression 46 y/o female with alcohol use disorder presents in major depressive episode, ? bipolar dx listed on chart but mainly rx antidepressants and Ativan. She was initially very resistant to inpatient care but is now open to treatment and agreeable to involve outpatient provider and parents in her stay. Plan (1) Drug overdose, intentional 12/28 The patient is admitted to [facility] ([facility]) on q 15 min checks (behavioral with suicide precautions) for safety. The patient will participate in group, recreational and milieu therapies and will be offered additional individual and family sessions as clinically appropriate. 12/29 -Patient presented with polysubstance overdose in a suicide attempt (alcohol, Ativan, lisinopril, and diphenhydramine). She had left a suicide note, and endorsed ongoing SI while on the medical floor. -Will need to work on a safety plan to include limiting access to large amounts of medications. -Work on substance abuse issues which increase suicide risk. -Family meeting with parents. (2) Major depressive disorder, recurrent episode with anxious distress 12/28 -Major depressive disorder, recurrent with anxious distress, rule out bipolar disorder: consideration to resume psych meds (other than methylphenidate) when settled into treatment on inpatient psych unit, patient so anxious in anticipation of transfer that she cannot engage in discussion around this. 12/29 -Reviewed medication options to target mood - wants to resume venlafaxine XR 37.5mg daily. Reviewed risks of evelina and mood destabilization. -Attend and participate in groups on the unit (3) Alcohol withdrawal continue Librium taper and lorazepam prn AWSS withdrawal protocol for breakthrough symptoms of withdrawal. continue thiamine and folic acid. (4) Alcohol dependence 12/28 Brief intervention was performed and was greater than 5 min in length for each substance. Brief interventions include: 1. Assess Readiness to Quit, 2. Advise: Help Patient to Reduce or Abstain from Alcohol, 3. Agree: Set Specific, Feasible Goals, 4. Assist: Anticipate barriers, Problem-Solving Solutions. Social work to 5. Arrange: Referrals to appropriate treatment. Summary of intervention: The patient is in contemplation stage with regards to transtheoretical model of change. The patient is advised to decrease alcohol consumption due to depressant effects and risk of interactions with prescription medications. The patient agreed that she should remain sober but was not yet voice level of commitment to outpatient services to assist with this and also asked at what point she can go back to Ativan. She will be provided with recovery materials to continue to education self on how to cope with their condition without drinking and was counseled re: risks of combining benzos. Outpatient provider will be notified. 12/29 Processed her problems with alcohol. Poor insight, thinks she will stop drinking for a time and then go back to social drinking only. Continue to explore with motivational interviewing. (5) Benzodiazepine dependence 12/28 - benzos only for withdrawal, will taper off here. Would not recommend use of controlled substances outside the hospital due to high risk of abuse/misuse/ negative outcomes. 12/29 - will coordinate with OP psychiatrist Dr. Fischer on [place] when office is open. - pt continues to request benzos, after long discussion accepted prn gabapentin for anxiety, will start with 100mg tid prn. (6) Hypertension Continue lisinopril and monitor BP. (7) Cluster B Traits Continue to monitor. Coordinate with therapist. Visit Code E&M Code: 58397 Risk Factors Assessment : Yes /single/: Yes Access to guns: No Health problems: No Mental Health Diagnoses: Yes Substance use disorders: Yes Previous attempt: No Family history of suicide: No Previous psychiatric stay: No Hopelessness: No Protective Factors Assessment : No Responsible for young children: No Employed: Yes Supportive family: Yes Good rapport with provider: Yes Data Vital Signs Last 24 Hrs: Date Time Temp Pulse Resp B/P Pulse Ox O2 Delivery O2 Flow Rate FiO2 12/29/16 07:08 36.8 90 16 104/68 93 106/73 12/28/16 21:03 36.8 93 16 167/98 12/28/16 19:27 36.8 91 16 140/90 Meds Administered Last 24 Hrs: Meds Administered (Past 24Hrs) Medications (Trade) Dose Ordered Sig/Franklyn Route Start Time Stop Time Status Last Admin Dose Admin Hydroxyzine HCl (Vistaril Tab) 50 mg HSZ PRN PO 12/28/16 18:15 01/27/17 18:14 12/29/16 03:14 50 MG Hydroxyzine HCl (Vistaril Tab) 25 mg Q4H PRN PO 12/28/16 18:15 01/27/17 18:14 12/28/16 21:44 25 MG Chlordiazepoxide (Librium Cap) 10 mg Q12H PO 12/28/16 18:15 12/29/16 06:16 DC 12/29/16 06:15 10 MG
[2016-12-29 08:34] VITALS: BP 102/69; PULSE 88; TEMP 36.8
[2016-12-29] MEDS: LISINOPRIL 2.5 MG TAB PO SCH (08:41)
[2016-12-29] MEDS: THIAMINE HCL 100 MG TAB PO SCH (08:41)
[2016-12-29] MEDS: MULTIVITAMIN TAB PO SCH (08:41)
[2016-12-29] MEDS ORDERED: NON-FORMULARY MEDICATION SCH (09:15)
[2016-12-29] MEDS ORDERED: VENLAFAXINE HCL XR 37.5 MG CAPXR PO ONE (13:00)
[2016-12-29 13:18] VITALS: BP 146/93; PULSE 84; TEMP 36.7
[2016-12-29] MEDS: LORAZEPAM 1 MG TAB PO PRN (13:30)
[2016-12-29] MEDS ORDERED: ORAL CONTRACEPTIVE~ORDER AWAITING ACTION SCH (16:00)
[2016-12-29 16:14] VITALS: BP 138/91; PULSE 91; TEMP 36.8
[2016-12-29] MEDS: ACETAMINOPHEN 325 MG TAB PO PRN (17:09)
[2016-12-29] MEDS: GABAPENTIN 100 MG CAP PO PRN (19:49)
[2016-12-29 21:04] VITALS: BP 137/85; PULSE 88; TEMP 36.8
[2016-12-29] MEDS: ETHINYL ESTRADIOL PO SCH (21:08)
[2016-12-29] MEDS: LEVONORGESTREL PO SCH (21:08)
[2016-12-30] VITALS (7 sets, daily range): BP systolic 101–164; BP diastolic 70–102; PULSE 67–110; TEMP 36.5–36.8
[2016-12-30] MEDS: GABAPENTIN 100 MG CAP PO PRN ×3 (05:25→20:49)
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
[2016-12-30] MEDS: VENLAFAXINE HCL XR 37.5 MG CAPXR PO SCH (08:44)
[2016-12-30] MEDS: THIAMINE HCL 100 MG TAB PO SCH (08:45)
[2016-12-30] MEDS: LISINOPRIL 2.5 MG TAB PO SCH (08:45)
[2016-12-30] MEDS: ETHINYL ESTRADIOL PO SCH (08:45)
[2016-12-30] MEDS: LEVONORGESTREL PO SCH (08:45)
[2016-12-30] MEDS: MULTIVITAMIN TAB PO SCH (08:45)
[2016-12-30] MEDS: hydrOXYzine HCL 25 MG TAB PO PRN ×4 (08:46→23:41)
[2016-12-30] MEDS: LORAZEPAM 1 MG TAB PO PRN (14:08)
[2016-12-30] MEDS: ACETAMINOPHEN 325 MG TAB PO PRN (16:15)
[2016-12-31] MEDS: GABAPENTIN 100 MG CAP PO PRN ×3 (04:39→23:45)
[2016-12-31 07:04] VITALS: BP_SYST 107; BP_SYST 111; BP_DIAS 68; BP_DIAS 73; PULSE 80; TEMP 36.8
[2016-12-31 09:06] VITALS: BP 158/104; PULSE 100; TEMP 36.9
[2016-12-31] MEDS: VENLAFAXINE HCL XR 37.5 MG CAPXR PO SCH (09:10)
[2016-12-31] MEDS: ETHINYL ESTRADIOL PO SCH (09:11)
[2016-12-31] MEDS: THIAMINE HCL 100 MG TAB PO SCH (09:11)
[2016-12-31] MEDS: LEVONORGESTREL PO SCH (09:11)
[2016-12-31] MEDS: MULTIVITAMIN TAB PO SCH (09:11)
[2016-12-31] MEDS: LORAZEPAM 1 MG TAB PO PRN (09:12)
[2016-12-31] MEDS: LISINOPRIL 2.5 MG TAB PO SCH (09:12)
[2016-12-31] MEDS: ACETAMINOPHEN 325 MG TAB PO PRN ×2 (11:17→17:29)
--- NOTE | 2016-12-31 11:48 | Psychiatric Progress Notes ---
Progress Note Date of Service December 31, 2016. Interval History Brittny Stoddard is a 46-year-old female who currently lives in [place] with her parents. She was initially admitted to the medical floor on 12/23/16 and consult was placed by Dr. Sandoval for suicide attempt by OD on multiple medications. The patient initially stated that she didn't remember coming to hospital and uncooperative with the initial interview, stating that she did not want inpatient psychiatric hospitalization. There was a 302 warrant on her chart by her father, but patient ultimately by the time of medical clearance, she was more cooperative and was amenable to sign a 201. Chief Complaint "Can I give you a brief update, do we have time for that?" Subjective Patient was seen & assessed interval progress reviewed with Treatment Team. Staff report she has been scoring on the withdrawal protocol once daily, receiving 1 mg of Ativan a day for the past 2 days. She continues to perseverate on wanting the Ativan, and although she told this physician yesterday that she did not recall what medication she overdosed on other than the Benadryl, she later told staff that she had not overdosed on her Ativan and only taken her prescribed dose. She continues to go to different staff and tell them that she does not think she overdosed on Ativan, and does not want that on her medical record. Her pills were counted yesterday, and at least 5 are missing from the prescription filled 12/13/2016. She was tearful during the visit from her parents, and continued to be tearful after they left. She stated her father is not supportive of her taking medication, but is willing to lock and dispense her medicines to her. She requested hydroxyzine for sleep, and then awoke in the middle of the night and requested something for anxiety, and got gabapentin. She has been anxious, restless, and nervous about her meeting with her parents today. She continues to minimize her suicide attempt, stating that she did it to "having near experience in order to see my cat. " Today, the patient states she was listening outside the door and wants to know "were you talking about me on the phone? I heard Ativan..." She says she wants to know if her Effexor can be increased to 75mg, stating she's had no side effects with resuming it. She also wants to "re-emphasize that for 10 years I took Ativan and Adderall perfectly, Dr. Fischer trusted me a lot...he always said we're both professionals." She is worried that she won't be able to get these medications now, and wants to clarify that she was probably missing Ativan because she took extra, because Dr. Fischer told her she could take extra if she needed it. She is very worried about her medical records will say about her controlled substance use. 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 She says she is afraid of leaving "the structure of the unit." She says she is living with her parents because she chronically spends excessively and therefore can't afford her own place. She talks about being involved with a [employer] clique , buying expensive accessories to try to fit in. She is not in debt, but likes living with them, as she is lonely, and "my mom is my best friend." She again brings up wanting Ativan and fears that she won't be able to get it. She says she was diagnosed with bipolar disorder when she was in graduate school, but doesn't think it was correct, as it was "a trendy diagnosis, and my newer doctor has switched it to anxiety disorder." She also says she doesn't want mood stabilizers because she fears weight gain and has struggled with eating disorders in the past. She denies classic evelina; although she has elevated mood at times, it lasts hours to days. She has chronic excessive spending that is not impulsive. She has increased risk taking behavior at times. Sleep Information Total Hours of Sleep: 4.50 Meal Information Percent of Breakfast Consumed: 80 Percent of Lunch Consumed: 100 Percent of Dinner Consumed: 80 Mental Status Exam During interview pt is: alert and oriented, cooperative Appearance: appropriately dressed, appeared stated age Eye contact is: good Motor behavior is: steady gait & station, no abnormal motor movements Speech: is pressured (hyperverbal, rapid) Affect: anxious, constricted Mood is: anxious Thought process: goal directed Thought content: reality based without delusions Suicidal thought are: denied Homicidal thoughts are: denied Hallucinations: denies auditory, denies visual Cognition: memory grossly intact, attention grossly intact, language grossly intact Intelligence estimated to be: average Insight: impaired Judgement: impaired Impression 46 y/o female with alcohol use disorder presents in major depressive episode, ? bipolar dx listed on chart but mainly rx antidepressants and Ativan. She was initially very resistant to inpatient care but is now open to treatment and agreeable to involve outpatient provider and parents in her stay. Plan (1) Drug overdose, intentional 12/28 The patient is admitted to [facility] ([facility] mental health unit) on q 15 min checks (behavioral with suicide precautions) for safety. The patient will participate in group, recreational and milieu therapies and will be offered additional individual and family sessions as clinically appropriate. 12/29 -Patient presented with polysubstance overdose in a suicide attempt (alcohol, Ativan, lisinopril, and diphenhydramine). She had left a suicide note, and endorsed ongoing SI while on the medical floor. -Will need to work on a safety plan to include limiting access to large amounts of medications. -Work on substance abuse issues which increase suicide risk. -Family meeting with parents. 12/31 -Family meeting with parents to be held today. Will recommend that all medications in the home because locked, alcohol removed, and the patient's medicines be dispensed to her daily to decrease the risk of impulsive overdose. We will also recommended no access to guns. (2) Major depressive disorder, recurrent episode with anxious distress 12/28 -Major depressive disorder, recurrent with anxious distress, rule out bipolar disorder: consideration to resume psych meds (other than methylphenidate) when settled into treatment on inpatient psych unit, patient so anxious in anticipation of transfer that she cannot engage in discussion around this. 12/29 -Reviewed medication options to target mood - wants to resume venlafaxine XR 37.5mg daily. Reviewed risks of evelina and mood destabilization. -Attend and participate in groups on the unit 12/30 -Continues to deny SI, minimizes attempt. 12/31 -Again reviewed risk of evelina, as bipolar disorder is on her differential. No episodes of classic evelina, but will need ongoing monitoring for switch to evelina/ activation. Also discussed borderline personality symptoms and that this may be playing a role. Suggested trial of lamotrigine for mood stabilization, but she does not want to take a mood stabilizer. -Pt wants to increase her venlafaxine XR to 75mg, which she was previously on as an outpatient. (3) Alcohol withdrawal continue Librium taper and lorazepam prn AWSS withdrawal protocol for breakthrough symptoms of withdrawal. continue thiamine and folic acid. (4) Alcohol dependence 12/28 Brief intervention was performed and was greater than 5 min in length for each substance. Brief interventions include: 1. Assess Readiness to Quit, 2. Advise: Help Patient to Reduce or Abstain from Alcohol, 3. Agree: Set Specific, Feasible Goals, 4. Assist: Anticipate barriers, Problem-Solving Solutions. Social work to 5. Arrange: Referrals to appropriate treatment. Summary of intervention: The patient is in contemplation stage with regards to transtheoretical model of change. The patient is advised to decrease alcohol consumption due to depressant effects and risk of interactions with prescription medications. The patient agreed that she should remain sober but was not yet voice level of commitment to outpatient services to assist with this and also asked at what point she can go back to Ativan. She will be provided with recovery materials to continue to education self on how to cope with their condition without drinking and was counseled re: risks of combining benzos. Outpatient provider will be notified. 12/29 Processed her problems with alcohol. Poor insight, thinks she will stop drinking for a time and then go back to social drinking only. Continue to explore with motivational interviewing. 12/30 Refusing to consider inpatient rehab, but willing to consider outpatient substance abuse treatment. Will need to review risks with parents and recs to remove all alcohol from the home. 12/31 Willing for OP treatment for alcoholism. (5) Benzodiazepine dependence 12/28 - benzos only for withdrawal, will taper off here. Would not recommend use of controlled substances outside the hospital due to high risk of abuse/misuse/ negative outcomes. 12/29 - will coordinate with OP psychiatrist Dr. Fischer on Saturday when office is open. - pt continues to request benzos, after long discussion accepted prn gabapentin for anxiety, will start with 100mg tid prn. 12/30 - Continues to score on AWSS, getting 1 mg of Ativan daily. 12/31 - Has had intermittent high blood pressure and pulse, likely due to benzodiazepine withdrawal. Will schedule a 0.5 mg dose of Ativan twice a day for a slow taper, to be completed as an outpatient. Care coordinated with Dr. Fischer, who has been prescribing her Ativan as an outpatient. Will recommend that parents keep her medication locked and dispense it to her daily as prescribed. (6) Hypertension Continue lisinopril and monitor BP. (7) Cluster B Traits Continue to monitor. Coordinate with therapist. Discharge / Aftercare Planning Primary Care Physician: Name: Thelma Jacinto Therapist: Name: Josiah Huynh Visit Code E&M Code: 26482 Risk Factors Assessment : Yes /single/: Yes Access to guns: No Health problems: No Mental Health Diagnoses: Yes Substance use disorders: Yes Previous attempt: No Family history of suicide: No Previous psychiatric stay: No Hopelessness: No Protective Factors Assessment : No Responsible for young children: No Employed: Yes Supportive family: Yes Good rapport with provider: Yes Data Vital Signs Last 24 Hrs: Date Time Temp Pulse Resp B/P Pulse Ox O2 Delivery O2 Flow Rate FiO2 12/31/16 09:06 36.9 100 16 158/104 12/31/16 07:04 36.8 80 16 107/68 80 111/73 12/30/16 20:42 36.8 94 16 164/100 12/30/16 16:12 36.6 78 16 160/102 12/30/16 14:04 36.8 110 20 162/98 12/30/16 12:02 36.7 73 16 129/85 12/30/16 11:58 36.7 73 16 129/85 Meds Administered Last 24 Hrs: Meds Administered (Past 24Hrs) Medications (Trade) Dose Ordered Sig/Franklyn Route Start Time Stop Time Status Last Admin Dose Admin Non-Formulary Medication (Non-Formulary Patient'S Own Med) 1 ea DAILY PO 12/30/16 09:00 01/29/17 08:59 12/31/16 09:11 1 EA Venlafaxine HCl (effeXOR EXTENDED REL CAP) 37.5 mg QAM PO 12/30/16 09:00 01/29/17 08:59 12/31/16 09:10 37.5 MG Venlafaxine HCl (effeXOR EXTENDED REL CAP) 37.5 mg 1300 ONCE PO 12/29/16 13:00 12/29/16 13:01 DC 12/29/16 13:00 37.5 MG Gabapentin (Neurontin Cap) 100 mg TID PRN PO 12/29/16 12:00 01/28/17 11:59 12/31/16 04:39 100 MG
[2016-12-31] MEDS ORDERED: LORAZEPAM 0.5 MG TAB PO ONE (12:15)
[2016-12-31] MEDS ORDERED: LORAZEPAM 0.5 MG TAB PO SCH (12:45)
[2016-12-31 13:28] VITALS: BP 153/96; PULSE 89; TEMP 36.6
[2016-12-31] MEDS: hydrOXYzine HCL 25 MG TAB PO PRN ×3 (13:59→23:46)
[2016-12-31 17:23] VITALS: BP 150/91; PULSE 87; TEMP 36.8
[2016-12-31 21:12] VITALS: BP 158/95; PULSE 97; TEMP 37
[2016-12-31] MEDS: LORAZEPAM 0.5 MG TAB PO SCH (21:51)
[2017-01-01] MEDS: hydrOXYzine HCL 25 MG TAB PO PRN ×3 (05:41→23:46)
[2017-01-01 07:04] VITALS: BP_SYST 106; BP_SYST 124; BP_DIAS 74; BP_DIAS 83; PULSE 91; PULSE 92; TEMP 36.6
[2017-01-01 08:12] VITALS: BP 124/83; PULSE 91; PULSE 92; TEMP 36.6
[2017-01-01 08:19] VITALS: BP 157/97; PULSE 88; TEMP 36.6
[2017-01-01] MEDS: VENLAFAXINE HCL XR 75 MG CAPXR PO SCH (08:43)
[2017-01-01] MEDS: THIAMINE HCL 100 MG TAB PO SCH (08:43)
[2017-01-01] MEDS: MULTIVITAMIN TAB PO SCH (08:43)
[2017-01-01] MEDS: LISINOPRIL 2.5 MG TAB PO SCH (08:43)
[2017-01-01] MEDS: LORAZEPAM 0.5 MG TAB PO SCH ×2 (08:43→21:22)
[2017-01-01] MEDS: ETHINYL ESTRADIOL PO SCH (08:54)
[2017-01-01] MEDS: LEVONORGESTREL PO SCH (08:54)
[2017-01-01] MEDS: GABAPENTIN 100 MG CAP PO PRN ×2 (11:04→23:46)
[2017-01-01] MEDS: ACETAMINOPHEN 325 MG TAB PO PRN (11:14)
[2017-01-01] MEDS ORDERED: LISINOPRIL 5 MG TAB PO ONE (13:00)
[2017-01-01 13:18] VITALS: BP 137/96; PULSE 96; TEMP 36.6
--- NOTE | 2017-01-01 13:24 | Psychiatric Progress Notes ---
Progress Note Date of Service January 01, 2017. Interval History Brittny Stoddard is a 46-year-old female who currently lives in [place] with her parents. She was initially admitted to the medical floor on 12/23/16 and consult was placed by Dr. Sandoval for suicide attempt by OD on multiple medications. The patient initially stated that she didn't remember coming to hospital and uncooperative with the initial interview, stating that she did not want inpatient psychiatric hospitalization. There was a 302 warrant on her chart by her father, but patient ultimately by the time of medical clearance, she was more cooperative and was amenable to sign a 201. Chief Complaint "You probably think I'm nuts stalking Dr. Degroot.". Subjective Patient was seen & assessed interval progress reviewed with Treatment Team. The patient is highly anxious and hyperverbal again today. She had wanted to talk with Dr. Degroot about events from yesterday including feeling like there had been some misunderstanding about recommendations for rehab. Brittny says that she is now willing to acknowledge that she has an alcohol problem and to consider increasing her substance use treatment, but still not willing to consider rehab. she wants to attend a women's AA meeting once weekly, but is not willing to commit to 90 meetings in 90 days. She will return to her psychiatrist and her therapist as well. She talked at length about feeling angry with various people for perceived misperceptions or slights, but was difficult to redirect to looking at herself and what part she plays in her problematic behavior. She wants other to compromise with her about her treatment , wanting to remain in control at all times. Much of her discussion is directed toward feeling out of control. She denies SI today saying that the only times she has been self injurious or suicidal has been when she is drunk. She admits to anger with herself for her behaviors including drinking, but doesn 't want others to use those against her, ie admits that she made bad decision R/ T events leading to hospitalization, but doesn't want her father to call her "nuts" because of it. Review of Systems Constitutional: No chills, No fatigue, No fever, No problem reported, No sweats , No weakness, No weight loss ENT: No dental problems, No hearing loss, No nasal symptoms, No problem reported, No sore throat, No tinnitus, No trouble swallowing, No unusual epistaxis Respiratory: No cough, No dyspnea at rest, No dyspnea on exertion, No hemoptysis, No problem reported, No shortness of breath, No sputum, No wheezing Cardiovascular: No PND, No chest pain, No claudication, No edema, No orthopnea , No palpitations, No problem reported Abdomen: No GI bleeding, No constipation, No diarrhea, No nausea, No pain, No problem reported, No vomiting Musculoskeletal: No calf pain, No joint pain, No muscle pain, No problem reported, No swelling Neurologic: No balance problems, No memory loss, No numbness/tingling, No paralysis, No problem reported, No vertigo, No weakness Psychiatric: + anxiety Integumentary: No bleeding, No color change, No itch, No new/changing skin lesions, No problem reported, No rash Sleep Information Total Hours of Sleep: 4.50 Meal Information Percent of Breakfast Consumed: 100 Percent of Lunch Consumed: 100 Percent of Dinner Consumed: 95 Mental Status Exam During interview pt is: alert and oriented, cooperative Appearance: appropriately dressed, appeared stated age Eye contact is: good Motor behavior is: steady gait & station, no abnormal motor movements Speech: is pressured (hyperverbal, rapid) Affect: anxious, constricted Mood is: anxious Thought process: tangential Thought content: reality based without delusions Suicidal thought are: denied Homicidal thoughts are: denied Hallucinations: denies auditory, denies visual Cognition: memory grossly intact, attention grossly intact, language grossly intact Intelligence estimated to be: average Insight: impaired Judgement: impaired Impression Brittny remains hyperverbal, and focused on her need to leave to attend nephew's christening. She continues to refuse the recommended rehab, but moving closer to seeing her alcohol as a problem and to engage in treatment. She denies SI. We will make referrals for OP D&A treatment and coordinate aftercare with her current providers. Plan (1) Drug overdose, intentional 12/28 The patient is admitted to [facility] ([facility] inpatient [facility]) on q 15 min checks (behavioral with suicide precautions) for safety. The patient will participate in group, recreational and milieu therapies and will be offered additional individual and family sessions as clinically appropriate. 12/29 -Patient presented with polysubstance overdose in a suicide attempt (alcohol, Ativan, lisinopril, and diphenhydramine). She had left a suicide note, and endorsed ongoing SI while on the medical floor. -Will need to work on a safety plan to include limiting access to large amounts of medications. -Work on substance abuse issues which increase suicide risk. -Family meeting with parents. 12/31 -Family meeting with parents to be held today. Will recommend that all medications in the home because locked, alcohol removed, and the patient's medicines be dispensed to her daily to decrease the risk of impulsive overdose. We will also recommended no access to guns. (2) Major depressive disorder, recurrent episode with anxious distress 12/28 -Major depressive disorder, recurrent with anxious distress, rule out bipolar disorder: consideration to resume psych meds (other than methylphenidate) when settled into treatment on inpatient psych unit, patient so anxious in anticipation of transfer that she cannot engage in discussion around this. 12/29 -Reviewed medication options to target mood - wants to resume venlafaxine XR 37.5mg daily. Reviewed risks of evelina and mood destabilization. -Attend and participate in groups on the unit 12/30 -Continues to deny SI, minimizes attempt. 12/31 -Again reviewed risk of evelina, as bipolar disorder is on her differential. No episodes of classic evelina, but will need ongoing monitoring for switch to evelina/ activation. Also discussed borderline personality symptoms and that this may be playing a role. Suggested trial of lamotrigine for mood stabilization, but she does not want to take a mood stabilizer. -Pt wants to increase her venlafaxine XR to 75mg, which she was previously on as an outpatient. (3) Alcohol withdrawal continue Librium taper and lorazepam prn AWSS withdrawal protocol for breakthrough symptoms of withdrawal. continue thiamine and folic acid. (4) Alcohol dependence 12/28 Brief intervention was performed and was greater than 5 min in length for each substance. Brief interventions include: 1. Assess Readiness to Quit, 2. Advise: Help Patient to Reduce or Abstain from Alcohol, 3. Agree: Set Specific, Feasible Goals, 4. Assist: Anticipate barriers, Problem-Solving Solutions. Social work to 5. Arrange: Referrals to appropriate treatment. Summary of intervention: The patient is in contemplation stage with regards to transtheoretical model of change. The patient is advised to decrease alcohol consumption due to depressant effects and risk of interactions with prescription medications. The patient agreed that she should remain sober but was not yet voice level of commitment to outpatient services to assist with this and also asked at what point she can go back to Ativan. She will be provided with recovery materials to continue to education self on how to cope with their condition without drinking and was counseled re: risks of combining benzos. Outpatient provider will be notified. 12/29 Processed her problems with alcohol. Poor insight, thinks she will stop drinking for a time and then go back to social drinking only. Continue to explore with motivational interviewing. 12/30 Refusing to consider inpatient rehab, but willing to consider outpatient substance abuse treatment. Will need to review risks with parents and recs to remove all alcohol from the home. 12/31 Willing for OP treatment for alcoholism. (5) Benzodiazepine dependence 12/28 - benzos only for withdrawal, will taper off here. Would not recommend use of controlled substances outside the hospital due to high risk of abuse/misuse/ negative outcomes. 12/29 - will coordinate with OP psychiatrist Dr. Fischer on Saturday when office is open. - pt continues to request benzos, after long discussion accepted prn gabapentin for anxiety, will start with 100mg tid prn. 12/30 - Continues to score on AWSS, getting 1 mg of Ativan daily. 12/31 - Has had intermittent high blood pressure and pulse, likely due to benzodiazepine withdrawal. Will schedule a 0.5 mg dose of Ativan twice a day for a slow taper, to be completed as an outpatient. Care coordinated with Dr. Fischer, who has been prescribing her Ativan as an outpatient. Will recommend that parents keep her medication locked and dispense it to her daily as prescribed. (6) Hypertension Continue lisinopril and monitor BP. 01/01 - Increase Lisinopril to 10 mg. BID (OP dose was 22.5 mg daily (7) Cluster B Traits Continue to monitor. Coordinate with therapist. Discharge / Aftercare Planning Primary Care Physician: Name: Thelma Jacinto Therapist: Name: Josiah Huynh Visit Code E&M Code: 72735 Risk Factors Assessment : Yes /single/: Yes Access to guns: No Health problems: No Mental Health Diagnoses: Yes Substance use disorders: Yes Previous attempt: No Family history of suicide: No Previous psychiatric stay: No Hopelessness: No Protective Factors Assessment : No Responsible for young children: No Employed: Yes Supportive family: Yes Good rapport with provider: Yes Data Vital Signs Last 24 Hrs: Date Time Temp Pulse Resp B/P Pulse Ox O2 Delivery O2 Flow Rate FiO2 01/01/17 08:19 36.6 88 16 157/97 01/01/17 08:12 36.6 91 16 124/83 92 01/01/17 07:04 36.6 91 16 106/74 92 124/83 12/31/16 21:12 37.0 97 16 158/95 12/31/16 17:23 36.8 87 16 150/91 12/31/16 13:28 36.6 89 18 153/96 Meds Administered Last 24 Hrs: Meds Administered (Past 24Hrs) Medications (Trade) Dose Ordered Sig/Franklyn Route Start Time Stop Time Status Last Admin Dose Admin Lorazepam (Ativan Tab) 0.5 mg BID PO 12/31/16 22:00 01/30/17 21:59 01/01/17 08:43 0.5 MG Lorazepam (Ativan Tab) 0.5 mg 1245 PO 12/31/16 12:45 12/31/16 12:46 DC 12/31/16 13:24 0.5 MG Venlafaxine HCl (effeXOR EXTENDED REL CAP) 75 mg QAM PO 01/01/17 09:00 01/31/17 08:59 01/01/17 08:43 75 MG
[2017-01-01 17:35] VITALS: BP 142/82; PULSE 92; TEMP 37.3
[2017-01-01 20:34] VITALS: BP 152/89; PULSE 80; TEMP 36.5
[2017-01-01] MEDS: LISINOPRIL 10 MG TAB PO SCH (21:22)
[2017-01-02] MEDS: ACETAMINOPHEN 325 MG TAB PO PRN ×3 (05:38→23:43)
[2017-01-02 08:09] VITALS: BP 128/82; PULSE 94; TEMP 36.7
[2017-01-02] MEDS: LORAZEPAM 0.5 MG TAB PO SCH ×2 (08:12→20:56)
[2017-01-02] MEDS: MULTIVITAMIN TAB PO SCH (08:13)
[2017-01-02] MEDS: LEVONORGESTREL PO SCH (08:13)
[2017-01-02] MEDS: ETHINYL ESTRADIOL PO SCH (08:13)
[2017-01-02] MEDS: VENLAFAXINE HCL XR 75 MG CAPXR PO SCH (08:13)
[2017-01-02] MEDS: THIAMINE HCL 100 MG TAB PO SCH (08:13)
[2017-01-02] MEDS: LISINOPRIL 10 MG TAB PO SCH ×2 (08:14→20:57)
--- NOTE | 2017-01-02 09:56 | Psychiatric Progress Notes ---
Progress Note Date of Service January 02, 2017. Interval History Brittny Stoddard is a 46-year-old female who currently lives in [place] with her parents. She was initially admitted to the medical floor on 12/23/16 and consult was placed by Dr. Sandoval for suicide attempt by OD on multiple medications. The patient initially stated that she didn't remember coming to hospital and uncooperative with the initial interview, stating that she did not want inpatient psychiatric hospitalization. There was a 302 warrant on her chart by her father, but patient ultimately by the time of medical clearance, she was more cooperative and was amenable to sign a 201. Chief Complaint "I feel like you're going to think I'm crazy because I want to stay.". Subjective Patient was seen & assessed interval progress reviewed with Treatment Team. The patient says that she talked with her father last evening, and her parents do not think that its a good idea for her to return home today. There are still many empty bottles of alcohol in her room that need to be removed and since she had been depressed for so long, her room is uninhabitable due to the debris, piles of unclean clothes. parents need an additional day to make her room habitable. Brittny says that their home is "a hoarder home", meaning that all of the room are full of accumulated possessions from all 3 of them. She herself says that due to vast weight changes over the years, she has many sizes of clothes that she has kept and take up her brothers old room. She feels anxious about returning home due to mother's concerns and wants to stay until tomorrow. 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 She says that she is benefitting from the structure here, having something to get up for and people to be with. Encouraged to try to recreate this structure after discharge by getting up to go to her office daily to work on her courses. She is also still worried about being without her ativan, both in terms of her anxiety and in terms of withdrawal. She lobbied for a slow taper over months. Her thoughts remain tangential, needing redirection to stay on topic, easily distracted by any other stimuli. She denies SI. She reports some mild tremors worrying this is related to alcohol withdrawal. Review of Systems Constitutional: No chills, No fatigue, No fever, No problem reported, No sweats , No weakness, No weight loss Cardiovascular: No PND, No chest pain, No claudication, No edema, No orthopnea , No palpitations, No problem reported Abdomen: No GI bleeding, No constipation, No diarrhea, No nausea, No pain, No problem reported, No vomiting Musculoskeletal: No calf pain, No joint pain, No muscle pain, No problem reported, No swelling Neurologic: + problem reported (mild tremors) Psychiatric: + anxiety Integumentary: No bleeding, No color change, No itch, No new/changing skin lesions, No problem reported, No rash Sleep Information Total Hours of Sleep: 5.25 Meal Information Percent of Breakfast Consumed: 100 Percent of Lunch Consumed: 100 Percent of Dinner Consumed: 90 Mental Status Exam During interview pt is: alert and oriented, cooperative Appearance: appropriately dressed, appeared stated age Eye contact is: good Motor behavior is: steady gait & station, no abnormal motor movements Speech: is pressured (hyperverbal, rapid) Affect: anxious, constricted Mood is: anxious Thought process: tangential Thought content: reality based without delusions Suicidal thought are: denied Homicidal thoughts are: denied Hallucinations: denies auditory, denies visual Cognition: memory grossly intact, attention grossly intact, language grossly intact Intelligence estimated to be: average Insight: impaired Judgement: impaired Impression Brittny remains hyperverbal today, with scattered, tangential thinking. Her parents are not prepared for her to return home yet as they are still clearing the debris from months of depression and drinking from her room. Her anxiety remains high and is easily overwhelmed. We will increase her Effexor to 150 mg. daily. BP is improved with more Lisinopril. Plan (1) Drug overdose, intentional 12/28 The patient is admitted to [facility] ([facility] inpatient mental health unit) on q 15 min checks (behavioral with suicide precautions) for safety. The patient will participate in group, recreational and milieu therapies and will be offered additional individual and family sessions as clinically appropriate. 12/29 -Patient presented with polysubstance overdose in a suicide attempt (alcohol, Ativan, lisinopril, and diphenhydramine). She had left a suicide note, and endorsed ongoing SI while on the medical floor. -Will need to work on a safety plan to include limiting access to large amounts of medications. -Work on substance abuse issues which increase suicide risk. -Family meeting with parents. 12/31 -Family meeting with parents to be held today. Will recommend that all medications in the home because locked, alcohol removed, and the patient's medicines be dispensed to her daily to decrease the risk of impulsive overdose. We will also recommended no access to guns. (2) Major depressive disorder, recurrent episode with anxious distress 12/28 -Major depressive disorder, recurrent with anxious distress, rule out bipolar disorder: consideration to resume psych meds (other than methylphenidate) when settled into treatment on inpatient psych unit, patient so anxious in anticipation of transfer that she cannot engage in discussion around this. 12/29 -Reviewed medication options to target mood - wants to resume venlafaxine XR 37.5mg daily. Reviewed risks of evelina and mood destabilization. -Attend and participate in groups on the unit 12/30 -Continues to deny SI, minimizes attempt. 12/31 -Again reviewed risk of evelina, as bipolar disorder is on her differential. No episodes of classic evelina, but will need ongoing monitoring for switch to evelina/ activation. Also discussed borderline personality symptoms and that this may be playing a role. Suggested trial of lamotrigine for mood stabilization, but she does not want to take a mood stabilizer. -Pt wants to increase her venlafaxine XR to 75mg, which she was previously on as an outpatient. 01/02 - Increase Effexor XR to 150 mg. daily (3) Alcohol withdrawal continue Librium taper and lorazepam prn AWSS withdrawal protocol for breakthrough symptoms of withdrawal. continue thiamine and folic acid. (4) Alcohol dependence 12/28 Brief intervention was performed and was greater than 5 min in length for each substance. Brief interventions include: 1. Assess Readiness to Quit, 2. Advise: Help Patient to Reduce or Abstain from Alcohol, 3. Agree: Set Specific, Feasible Goals, 4. Assist: Anticipate barriers, Problem-Solving Solutions. Social work to 5. Arrange: Referrals to appropriate treatment. Summary of intervention: The patient is in contemplation stage with regards to transtheoretical model of change. The patient is advised to decrease alcohol consumption due to depressant effects and risk of interactions with prescription medications. The patient agreed that she should remain sober but was not yet voice level of commitment to outpatient services to assist with this and also asked at what point she can go back to Ativan. She will be provided with recovery materials to continue to education self on how to cope with their condition without drinking and was counseled re: risks of combining benzos. Outpatient provider will be notified. 12/29 Processed her problems with alcohol. Poor insight, thinks she will stop drinking for a time and then go back to social drinking only. Continue to explore with motivational interviewing. 12/30 Refusing to consider inpatient rehab, but willing to consider outpatient substance abuse treatment. Will need to review risks with parents and recs to remove all alcohol from the home. 12/31 Willing for OP treatment for alcoholism. (5) Benzodiazepine dependence 12/28 - benzos only for withdrawal, will taper off here. Would not recommend use of controlled substances outside the hospital due to high risk of abuse/misuse/ negative outcomes. 12/29 - will coordinate with OP psychiatrist Dr. Fischer on Saturday when office is open. - pt continues to request benzos, after long discussion accepted prn gabapentin for anxiety, will start with 100mg tid prn. 12/30 - Continues to score on AWSS, getting 1 mg of Ativan daily. 12/31 - Has had intermittent high blood pressure and pulse, likely due to benzodiazepine withdrawal. Will schedule a 0.5 mg dose of Ativan twice a day for a slow taper, to be completed as an outpatient. Care coordinated with Dr. Fischer, who has been prescribing her Ativan as an outpatient. Will recommend that parents keep her medication locked and dispense it to her daily as prescribed. (6) Hypertension Continue lisinopril and monitor BP. 01/01 - Increase Lisinopril to 10 mg. BID (OP dose was 22.5 mg daily (7) Cluster B Traits Continue to monitor. Coordinate with therapist. Discharge / Aftercare Planning Primary Care Physician: Name: Thelma Jacinto PA-C, [facility] Phone Number: [phone] Psychiatrist: Name: Dr. Fischer Date of Appointment: January 07, 2017 Time of Appointment: 4:15pm Therapist: Name: Josiah Downs at [facility] Date of Appointment: January 09, 2017 Time of Appointment: 5:00pm Other: Name of Appointment #1: Lorna Barragan Date of Appointment #1: January 08, 2017 Time of Appointment #1: 1pm Visit Code E&M Code: 09673 Risk Factors Assessment : Yes /single/: Yes Access to guns: No Health problems: No Mental Health Diagnoses: Yes Substance use disorders: Yes Previous attempt: No Family history of suicide: No Previous psychiatric stay: No Hopelessness: No Protective Factors Assessment : No Responsible for young children: No Employed: Yes Supportive family: Yes Good rapport with provider: Yes Data Vital Signs Last 24 Hrs: Date Time Temp Pulse Resp B/P Pulse Ox O2 Delivery O2 Flow Rate FiO2 01/02/17 08:09 36.7 94 18 128/82 01/01/17 20:34 36.5 80 18 152/89 01/01/17 17:35 37.3 92 16 142/82 01/01/17 13:18 36.6 96 16 137/96 Meds Administered Last 24 Hrs: Meds Administered (Past 24Hrs) Medications (Trade) Dose Ordered Sig/Franklyn Route Start Time Stop Time Status Last Admin Dose Admin Lorazepam (Ativan Tab) 0.5 mg BID PO 12/31/16 22:00 01/30/17 21:59 01/02/17 08:12 0.5 MG Lorazepam (Ativan Tab) 0.5 mg 1245 PO 12/31/16 12:45 12/31/16 12:46 DC 12/31/16 13:24 0.5 MG Venlafaxine HCl (effeXOR EXTENDED REL CAP) 75 mg QAM PO 01/01/17 09:00 01/31/17 08:59 01/02/17 08:13 75 MG Lisinopril (Zestril Tab) 10 mg BID PO 01/01/17 22:00 01/31/17 21:59 01/02/17 08:14 10 MG Lisinopril (Zestril Tab) 7.5 mg 1300 ONCE PO 01/01/17 13:00 01/01/17 13:01 DC 01/01/17 13:22 7.5 MG
[2017-01-02 13:30] VITALS: BP 143/83; PULSE 73; TEMP 36.8
[2017-01-02] MEDS: GABAPENTIN 100 MG CAP PO PRN ×2 (13:43→23:42)
[2017-01-02 16:27] VITALS: BP 124/81; PULSE 103; TEMP 36.8
[2017-01-02] MEDS: hydrOXYzine HCL 25 MG TAB PO PRN ×2 (20:55→23:42)
[2017-01-02 21:13] VITALS: BP 139/90; PULSE 88; TEMP 36.7
[2017-01-03 07:04] VITALS: BP_SYST 126; BP_SYST 133; BP_DIAS 81; BP_DIAS 83; PULSE 78; PULSE 83; TEMP 36.8
[2017-01-03] MEDS: LEVONORGESTREL PO SCH (09:00)
[2017-01-03] MEDS: ETHINYL ESTRADIOL PO SCH (09:00)
[2017-01-03] MEDS ORDERED: VENLAFAXINE HCL XR 150 MG CAPXR PO SCH (09:00)
[2017-01-03] MEDS ORDERED: ATR25 PO (09:40)
[2017-01-03] MEDS ORDERED: ATV/1 PO (09:40)
[2017-01-03] MEDS ORDERED: NRN100 PO (09:40)
[2017-01-03] MEDS ORDERED: EFFSR150 PO (09:40)
--- NOTE | 2017-01-03 09:51 | Discharge Instructions ---
Discharge Information Report Includes Report will include the: Discharge Instructions & Summary Admission Admission Date / Time: Dec 28, 2016 at 17:45 Reason for Admission: Major Depressive Disorder, Severe W/O Psychosis Discharge Discharge Diagnosis / Problem: Depression, alcohol dependence Condition at Discharge: Fair Discharge Goals Goal(s): Decrease discomfort, Improve disease control, Prevent Disease Progression Activity Recommendations Activity Limitations: resume your previous activity . Instructions / Follow-Up Instructions / Follow-Up . SPECIAL CARE INSTRUCTIONS: 1. Follow through with your scheduled aftercare appointments. If unable to keep an appointment, please call to reschedule. 2. Take your medication only as prescribed. Medication should not be changed or stopped without the approval of your doctor. In the event of worsening symptoms or concerns about side effects, contact your doctor immediately. 3. Utilize new healthy coping skills, anger management skills, and stress management skills learned during your hospitalization. Journal feelings and process them with a support person. Identify stressors or situations that may result in relapse, deterioration or inappropriate behaviors and develop a plan to deal with those issues. 4. If your coping skills are ineffective and you are in crisis, contact your outpatient providers for direction. If unable to reach your providers, please call the CAN HELP LINE AT or go to the closest Emergency Room. 5. Avoid alcohol and un-prescribed drugs. 6. You have been provided with the Mental Health Advance Directives Pamphlet for your review. AFTERCARE APPOINTMENTS: * Please call your insurance company prior to your scheduled appointment to confirm your aftercare providers are covered. Take your insurance information to your appointments. . Discharge / Aftercare Planning Primary Care Physician: Name: Thelma Jacinto PA-C, [facility] Phone Number: [phone] Psychiatrist: Name: Dr. Fischer Date of Appointment: January 07, 2017 Time of Appointment: 4:15pm Therapist: Name Of Therapist: Josiah beck [facility] Date of Appointment: January 09, 2017 Time of Appointment: 5:00pm Other: Name of Appointment #1: Lorna Barragan Date of Appointment #1: January 08, 2017 Time of Appointment #1: 1pm . Follow-Up Care Plan for Follow-Up Care: The patient will see Dr. Fischer on 01/07/17 Current Hospital Diet Patient's current hospital diet: Regular Diet Discharge Diet Recommended Diet: Regular Diet Procedures Procedures Performed: No Pending Studies Pending Studies at Discharge: No Medical Emergencies . Who to Call and When: Medical Emergencies: For questions or emergencies related to your hospital stay, please contact the Inpatient Behavioral Health Unit at [phone]. A electrical mechanical technician is on-call 25/03 for the Behavioral Health Unit for emergencies At any time you feel your situation is an emergency, you may also call 911 immediately. . Non-Emergent Contact Non-Emergency issues call your: Psychiatrist, Therapist Advance Directives Existing Advance Directive: No Do You Have an Existing Mental: No Existing Living Will: No Existing Power of Elevator Worker: No Advance Directives Info Given: To Pt/S.O. Advance Directives Reason: Declines as Mental Health Visit. Discharge Summary Admission HPI Per the Admitting provider: Please see attached H&P Hospital Course (1) Drug overdose, intentional 12/28 The patient is admitted to [facility] ([facility] inpatient [facility] unit) on q 15 min checks (behavioral with suicide precautions) for safety. The patient will participate in group, recreational and milieu therapies and will be offered additional individual and family sessions as clinically appropriate. 12/29 -Patient presented with polysubstance overdose in a suicide attempt (alcohol, Ativan, lisinopril, and diphenhydramine). She had left a suicide note, and endorsed ongoing SI while on the medical floor. -Will need to work on a safety plan to include limiting access to large amounts of medications. -Work on substance abuse issues which increase suicide risk. -Family meeting with parents. 12/31 -Family meeting with parents to be held today. Will recommend that all medications in the home because locked, alcohol removed, and the patient's medicines be dispensed to her daily to decrease the risk of impulsive overdose. We will also recommended no access to guns. (2) Major depressive disorder, recurrent episode with anxious distress 12/28 -Major depressive disorder, recurrent with anxious distress, rule out bipolar disorder: consideration to resume psych meds (other than methylphenidate) when settled into treatment on inpatient psych unit, patient so anxious in anticipation of transfer that she cannot engage in discussion around this. 12/29 -Reviewed medication options to target mood - wants to resume venlafaxine XR 37.5mg daily. Reviewed risks of evelina and mood destabilization. -Attend and participate in groups on the unit 12/30 -Continues to deny SI, minimizes attempt. 12/31 -Again reviewed risk of evelina, as bipolar disorder is on her differential. No episodes of classic evelina, but will need ongoing monitoring for switch to evelina/ activation. Also discussed borderline personality symptoms and that this may be playing a role. Suggested trial of lamotrigine for mood stabilization, but she does not want to take a mood stabilizer. -Pt wants to increase her venlafaxine XR to 75mg, which she was previously on as an outpatient. 01/02 - Increase Effexor XR to 150 mg. daily (3) Alcohol withdrawal continue Librium taper and lorazepam prn AWSS withdrawal protocol for breakthrough symptoms of withdrawal. continue thiamine and folic acid. (4) Alcohol dependence 12/28 Brief intervention was performed and was greater than 5 min in length for each substance. Brief interventions include: 1. Assess Readiness to Quit, 2. Advise: Help Patient to Reduce or Abstain from Alcohol, 3. Agree: Set Specific, Feasible Goals, 4. Assist: Anticipate barriers, Problem-Solving Solutions. Social work to 5. Arrange: Referrals to appropriate treatment. Summary of intervention: The patient is in contemplation stage with regards to transtheoretical model of change. The patient is advised to decrease alcohol consumption due to depressant effects and risk of interactions with prescription medications. The patient agreed that she should remain sober but was not yet voice level of commitment to outpatient services to assist with this and also asked at what point she can go back to Ativan. She will be provided with recovery materials to continue to education self on how to cope with their condition without drinking and was counseled re: risks of combining benzos. Outpatient provider will be notified. 12/29 Processed her problems with alcohol. Poor insight, thinks she will stop drinking for a time and then go back to social drinking only. Continue to explore with motivational interviewing. 12/30 Refusing to consider inpatient rehab, but willing to consider outpatient substance abuse treatment. Will need to review risks with parents and recs to remove all alcohol from the home. 12/31 Willing for OP treatment for alcoholism. (5) Benzodiazepine dependence 12/28 - benzos only for withdrawal, will taper off here. Would not recommend use of controlled substances outside the hospital due to high risk of abuse/misuse/ negative outcomes. 12/29 - will coordinate with OP psychiatrist Dr. Fischer on Saturday when office is open. - pt continues to request benzos, after long discussion accepted prn gabapentin for anxiety, will start with 100mg tid prn. 12/30 - Continues to score on AWSS, getting 1 mg of Ativan daily. 12/31 - Has had intermittent high blood pressure and pulse, likely due to benzodiazepine withdrawal. Will schedule a 0.5 mg dose of Ativan twice a day for a slow taper, to be completed as an outpatient. Care coordinated with Dr. Fischer, who has been prescribing her Ativan as an outpatient. Will recommend that parents keep her medication locked and dispense it to her daily as prescribed. (6) Hypertension Continue lisinopril and monitor BP. 01/01 - Increase Lisinopril to 10 mg. BID (OP dose was 22.5 mg daily (7) Cluster B Traits Continue to monitor. Coordinate with therapist. Risk Factors Assessment : Yes /single/: Yes Access to guns: No Health problems: No Mental Health Diagnoses: Yes Substance use disorders: Yes Previous attempt: No Family history of suicide: No Previous psychiatric stay: No Hopelessness: No Protective Factors Assessment : No Responsible for young children: No Employed: Yes Supportive family: Yes Good rapport with provider: Yes Day of Discharge Assessment COURSE OF HOSPITALIZATION: Patient was initially admitted to the medical floor after having been admitted after a suicide attempt of alcohol Ativan and Benadryl. She was transferred voluntarily to our mental health unit. During her 6 day stay, she was continued on a titration of Effexor, getting to 150 mg daily. In view of concerns for her addictions with controlled substances, Ativan taper was begun and by the time of discharge was down to 0.5 mg twice daily. Ritalin was discontinued as well, again relative to her addictions history. We were in contact with her outpatient provider. She was initially difficult during her hospital stay, being focused on wanting to leave, not thinking that she needed to be here, as she is denying that she had overdosed on Ativan. She was able to calm down later in her stay, see the value of being in the hospital. Her parents, with whom she lives, were involved in her treatment and attended a family meeting. Parents remain concerned about her drinking behaviors. The parents had requested time enough to clear all of the alcohol and empty bottles out of their home before having the patient discharged. She spent a large amount of time lobbying not to have her Ativan removed. She focused on the need to have Ativan over the summer and proceeding with a slow taper and catastrophizing saying that if she had a severe stress in the future, that she would not have access to medications. She was encouraged to look at behavioral strategies to manage her anxiety which was difficult for her. She denied any further suicidal ideation during her stay. Her primary recommendation for her alcohol dependence was to attend rehabilitation and she consistently refused. She did eventually agree to attend an IOP and to consider attending one AA meeting weekly. She was proud of herself that she was willing to admit that alcohol is a problem and that she needs treatment but not yet at the point where she was willing to accept full responsibility and except recommendations for treatment. DAY OF DISCHARGE ASSESSMENT: Today the patient is requesting discharge. She spent most of her time during the discharge interview, talking about not wanting her Ativan removed. She initially refused to sign releases of information to her psychiatrist and PCP, not wanting them to know our opinion about medication discontinuation. She did eventually sign them so that discharge summaries could be sent. She also talked at length about not wanting her Ritalin removed and we discussed that this would be up to her outpatient provider. We did have one final discussion that much of her conversation was motivated toward finding pills to medicate her symptoms and not looking to use behavioral strategies. She was also encouraged to spend more time owning her behaviors and looking to understand how she can help herself rather than defending these behaviors and trying to prevent people from seeing who she really is. Today she is casually and appropriately dressed and groomed. Gait and station are within normal limits. She does evidence some mild tremors in her hands. Her speech is rapid, thoughts tangential but reality based. Recent and remote memory is intact per conversation with the exception of the events following the overdose. Intelligence is estimated to be average. Insight and judgment are improved over admission. Laboratory Were done while on the medical floor Total Time Total Time Spent (min): Greater than 30 minutes Total Time Included: examination of the patient, discharge planning, medication reconciliation, communication with other providers Tobacco Cessation at Discharge Smoking Status: Never Smoker FDA approved Prescription: non-smoker
[2017-01-03] MEDS: LORAZEPAM 0.5 MG TAB PO SCH (09:55)
[2017-01-03] MEDS: LISINOPRIL 10 MG TAB PO SCH (09:57)
[2017-01-03] MEDS: MULTIVITAMIN TAB PO SCH (09:57)
[2017-01-03] MEDS: THIAMINE HCL 100 MG TAB PO SCH (09:57)
[2017-01-03 10:01] VITALS: BP 153/84; PULSE 101; TEMP 37
[2017-01-03] MEDS ORDERED: DESTROY THIS MEDICATION SCH (12:30)
== END 2017-01-03 13:05 | disposition home or self-care (01) | DRG 885 ==
LOC: C.MHU 17:45
PROVIDERS: ADMIT Psychiatry & Neurology Child & Adolescent Psychiatry; ATTEND Psychiatry & Neurology Psychiatry
DX: F33.2 Major depressive disorder, recurrent severe without psychotic features (principal); F10.24 Alcohol dependence with alcohol-induced mood disorder; F13.239 Sedative, hypnotic or anxiolytic dependence with withdrawal, unspecified; R45.851 Suicidal ideations; F13.24 Sedative, hypnotic or anxiolytic dependence with sedative, hypnotic or anxiolytic-induced mood disorder; I10 Essential (primary) hypertension; F41.8 Other specified anxiety disorders; F60.89 Other specific personality disorders